=== PATIENT | female | born 1960 | race Caucasian/White ===

== ENCOUNTER → 2019-06-18 09:34 | Outpatient (BNVA) | payer MEDICARE, MEDICAID, SELFPAY | PROVIDERS: Visit Provider Podiatrist Foot & Ankle Surgery | DX: M79.671 Pain in right foot (principal); Z46.89 Encounter for fitting and adjustment of other specified devices; M76.821 Posterior tibial tendinitis, right leg | CPT/HCPCS: 73630; L1902 ==

== ENCOUNTER 2019-06-18 11:36 | Outpatient (CLI) | payer MEDICARE, MEDICAID, SELFPAY | END 2019-06-18 11:37 | disposition home or self-care (01) | LOC: SPT 11:36 | PROVIDERS: Family Provider Family Medicine; Visit Provider Podiatrist Foot & Ankle Surgery | DX: Z46.89 Encounter for fitting and adjustment of other specified devices (principal); M76.821 Posterior tibial tendinitis, right leg | CPT/HCPCS: L1902 ==

== ENCOUNTER 2019-08-16 08:11 | Outpatient (CLI) | payer MEDICARE, MEDICAID, SELFPAY ==
--- NOTE | 2019-08-16 09:30 | CT_ITS ---
WS: [id number] CT THORACIC SPINE TECHNIQUE: Noncontrast CT of the thoracic spine with coronal and sagittal reformatted images. CLINICAL INFORMATION: Thoracic back pain COMPARISON: None. DLP: 1087.[address] scans at [facility] use at least one of these dose optimization techniques: automat ed exposure control; mA and/or kV adjustment per patient size (includes targeted exams where dose is matched to clinical indication); or iterative reconstruction. FINDINGS: Mild thoracic curve. Mild thoracic kyphosis. Anterior hypertrophic changes lower thoracic spine. No a cute compressionfractures. Mild spondylitic changes. Mild chronic anterior wedging in the mid thoraci c spine at T7. Endplate degenerative changes inferior endplate T7. No significant central canal stenosis. Mild facet arthropathy lower thoracic spine. Mild anterior hyp ertrophic changes in the lower thoracic spine at T9-T11 eccentric to the right. Normal caliber descending thoracic aorta. Thickening of the left adrenal gland likely due to hyperpla erika unchanged since CT abdomen pelvis August 23, 2018. Right adrenal gland is normal. Mild chronic emphy sematous changes in the partially visualized lungs. Calcified granuloma right lung. CT/CT thoracic spin wo con* [id number] IMPRESSION: 1. Mild thoracic curve convex right. Mild thoracic kyphosis. 2. No acute appearing compression fractures. 3. Mild chronic anterior wedging at T7. 4. Mild anterior hypertrophic changes in the lower thoracic spine at T9-T11. 5. No significant central canal stenosis.
== END 2019-08-16 08:12 | disposition home or self-care (01) ==
LOC: RADWPI 08:16
PROVIDERS: Family Provider Family Medicine; PCP Nurse Practitioner; Visit Provider Licensed Practical Nurse
DX: M54.6 Pain in thoracic spine (principal); M40.294 Other kyphosis, thoracic region
CPT/HCPCS: 72128

== ENCOUNTER 2019-08-28 19:42 | Emergency (ER) | payer MEDICARE, MEDICAID, SELFPAY ==
[2019-08-28] VITALS (7 sets, daily range): BP systolic 142–180; BP diastolic 77–100; PULSE 52–77; RESP 14–24; TEMP 36.4; O2SAT 89–97; BMI 35.6
--- NOTE | 2019-08-28 19:48 | W.ED.NAVMDI ---
HPI - Nausea/Vomiting/Diarrhea General: Chief complaint: Nausea/Vomiting/Diarrhea Stated complaint: N/V Time Seen by Provider: 08/28/19 19:43 Source: patient and EMS Mode of arrival: EMS Limitations: no limitations History of Present Illness: HPI Narrative: 58-year-old female who states she has been having nausea vomiting and diarrhea for last 2 days. States she had diffuse abdominal cramping is also radiated to her chest as well. She states her pain is currently a 3 out of 10. Denies any worsening or improving factors. Patient vomited in route by EMS and was given 8 mg Zofran. She states she still feels nauseous. MD elicited complaint: nausea and vomiting Onset (ago): day(s) Description of vomiting: food contents Associated nausea: Yes Location of pain: Diffuse Pain consistency: constant Severity: moderate Exacerbating factors: none Relieving factors: none Associated symtoms: Reports chest pain and nausea; Denies dysuria or headache(s) Review of Systems Const: Denies: fever(s), chills, body aches or change in appetite Eyes: Denies: blurry vision or eye discomfort ENMT: Denies: throat pain or dental pain Card: Reports: chest pain Resp: Denies: dyspnea GI: Reports: abdominal pain, nausea, vomiting and diarrhea : Denies: dysuria Musc: Denies: neck pain or back pain Skin/Breast: Denies: rash Neuro: Denies: headache(s) Psych: Denies: depression Yasmani/Lymph: Denies: easy bruising All/Imm: Denies: urticaria PFSH ED PFSH: Medical History CAD (coronary artery disease) CKD (chronic kidney disease) COPD (chronic obstructive pulmonary disease) Diabetes type 2, controlled Fatty liver disease, nonalcoholic HTN (hypertension) Hypothyroid Thoracic degenerative disc disease Surgical History History of delivery (~1988) History of cholecystectomy History of foot surgery (~2010) cyst removal History of knee surgery (~2010) Family History Father Cancer Family/Other Cancer Grandmother Cancer Mother Cancer Social History Smoking and tobacco status: current every day smoker Alcohol intake: current Alcohol intake frequency: holidays/special occasions only Household members: none Marital status: Single Current occupational status: disabled History of recent travel: No Physical Exam Const: COMMON NORMALS: no acute distress, patient oriented x3 and healthy appearing HENMT: COMMON NORMALS: normocephalic and atraumatic HEAD & SCALP: normocephalic and atraumatic Eye: COMMON NORMALS: Equal, round and reactive pupils present and EOMs intact bilaterally PUPIL: Yes Equal, round and reactive pupils present Neck/C-Spine: COMMON NORMALS: full ROM and supple Chest: COMMONS NORMALS: normal inspection of the chest and normal palpation of entire chest wall Resp: COMMON NORMALS: normal respiratory effort, No retractions, No use of accessory muscles and clear to auscultation bilaterally AUSCULTATION: clear to auscultation bilaterally Cardio: COMMON NORMALS: regular rate, regular rhythm and No murmurs present (Cardio) RATE: regular rate RHYTHM: regular rhythm GI: COMMON NORMALS: Normal to inspection, nondistended, normoactive bowel sounds present, Soft to palpation, non-tender and no masses PALPATION: Yes Soft to palpation Extremity: COMMON NORMALS: normal to inspection and full ROM Neuro: COMMON NORMALS: patient oriented x3, moves all extremities and no focal motor deficits Psych: COMMON NORMALS: mental status grossly normal, Normal thought process present and cooperative THOUGHT PROCESS: Normal thought process present Skin: COMMON NORMALS: no rashes or lesions noted and no wounds GENERAL SKIN EXAM: no rashes or lesions noted Course Vital Signs: Vital signs: Vital Signs Temperature 97.6 F 08/28/19 19:42 Pulse Rate 71 08/28/19 23:35 Respiratory Rate 18 08/28/19 23:35 Blood Pressure 146/77 08/28/19 22:15 Pulse Oximetry 91 08/28/19 23:35 MDM - Nausea/Vomiting/Diarrhea MDM Narrative: Medical decision making narrative: Patient presents with vomiting along with abdominal pain. Patient CT shows colitis. Her lab work here is normal. She feels much improved after nausea meds and was able to tolerate p.o. I did offer patient admission but she states she feels better and wants to try home treatment. We will place her on Cipro and Flagyl and prescribe her Zofran. She is to follow-up with her primary care doctor in 3 to 5 days return if worsening. Lab Data: Labs: Lab Results 08/28/19 08/28/19 08/28/19 Range/Units 20:01 20:01 20:01 WBC 7.3 (4.0-10.0) 10^3/ uL RBC 4.36 (4.1-5.3) 10^6/u L Hgb 13.2 (11.5-15.3) g/dL Hct 39.9 (37.0-47.0) % MCV 91.5 (81-99) fL MCH 30.3 (28.0-34.0) pg MCHC 33.1 (30.0-36.0) g/dL RDW 15.3 H (12.1-15.1) % Plt Count 271 (130-400) 10^3/c mm MPV 10.1 (7.4-10.4) fL Neut % (Auto) 70.5 % Lymph % (Auto) 21.0 % [place] % (Auto) 6.7 % Eos % (Auto) 0.7 % Baso % (Auto) 0.7 % Neut # (Auto) 5.2 (1.8-7.7) 10^3/u L Lymph # (Auto) 1.5 (0.8-4.8) 10^3/u L [place] # (Auto) 0.5 (0.2-0.9) 10^3/u L Eos # (Auto) 0.1 (0.0-0.8) 10^3/u L Baso # (Auto) 0.1 (0.0-0.1) 10^3/u L Nucleated RBC % (a uto) 0 % Nucleated RBCs # 0.0 /100WBC Sodium 139 (136-145) mmol/L Potassium 3.7 (3.5-5.1) mmol/L Chloride 100 (98-107) mmol/L Carbon Dioxide 25 (22-29) mmol/L Anion Gap 17.7 (5-19) BUN 18 (6-20) mg/dL Creatinine 0.5 (0.5-0.9) mg/dL GFR Calculation 127.6 (90-130) mL/min Glucose 149 H (65-115) mg/dL Calculated Osmolal ity 287 (285-295) mOsm/k g Calcium 8.6 (8.5-10.5) mg/dL Total Bilirubin 0.3 (0.15-1.2) mg/dL AST 13 (0-32) U/L ALT 16 (0-33) U/L Alkaline Phosphata se 67 (35-105) IU/L Troponin T Baselin e 8 (0-10) ng/mL Troponin T 120 Min absentee-[place] (0-10) ng/mL Delta Troponin T (0-10) ABS# Total Protein 6.2 L (6.6-8.7) g/dL Albumin 4.1 (3.5-5.2) g/dL Globulin 2.1 (1.3-4.6) g/dL Lipase 12 L (13-60) U/L 05/20/ Range/Units 21:28 WBC (4.0-10.0) 10^3/ uL RBC (4.1-5.3) 10^6/u L Hgb (11.5-15.3) g/dL Hct (37.0-47.0) % MCV (81-99) fL MCH (28.0-34.0) pg MCHC (30.0-36.0) g/dL RDW (12.1-15.1) % Plt Count (130-400) 10^3/c mm MPV (7.4-10.4) fL Neut % (Auto) % Lymph % (Auto) % [place] % (Auto) % Eos % (Auto) % Baso % (Auto) % Neut # (Auto) (1.8-7.7) 10^3/u L Lymph # (Auto) (0.8-4.8) 10^3/u L [place] # (Auto) (0.2-0.9) 10^3/u L Eos # (Auto) (0.0-0.8) 10^3/u L Baso # (Auto) (0.0-0.1) 10^3/u L Nucleated RBC % (a uto) % Nucleated RBCs # /100WBC Sodium (136-145) mmol/L Potassium (3.5-5.1) mmol/L Chloride (98-107) mmol/L Carbon Dioxide (22-29) mmol/L Anion Gap (5-19) BUN (6-20) mg/dL Creatinine (0.5-0.9) mg/dL GFR Calculation (90-130) mL/min Glucose (65-115) mg/dL Calculated Osmolal ity (285-295) mOsm/k g Calcium (8.5-10.5) mg/dL Total Bilirubin (0.15-1.2) mg/dL AST (0-32) U/L ALT (0-33) U/L Alkaline Phosphata se (35-105) IU/L Troponin T Baselin e (0-10) ng/mL Troponin T 120 Min absent[place] 8.99 (0-10) ng/mL Delta Troponin T 0.99 (0-10) ABS# Total Protein (6.6-8.7) g/dL Albumin (3.5-5.2) g/dL Globulin (1.3-4.6) g/dL Lipase (13-60) U/L Imaging Data^: CT Abd/Pel: Radiologist's impression: [address] [place] [id number] Scan Report Signed Patient: Selena Tineo Unit #: [id number] : 1960 Age/Sex: 58 / F ADM Date: 08/28/19 Loc: ER Room/Bed: Attending Dr: Ordering Provider/Ordering MD: Bette Xie MD Date of Service: 08/28/19 Procedure(s): CT abdomen pelvis w con* [id number] Accession Number(s): [id number] Report Number: [id number] PROCEDURE INFORMATION: Exam: CT Abdomen And Pelvis With Contrast Exam date and time: 08/28/2019 7:55 PM Age: 58 years old Clinical indication: Nausea and vomiting; Abdominal pain; Prior surgery; Surgery type: , gb; Additional info: Abd pain TECHNIQUE: Imaging protocol: Computed tomography of the abdomen and pelvis with intravenous contrast. Radiation optimization: All CT scans at this facility use at least one of these dose optimization techniques: automated exposure control; mA and/or kV adjustment per patient size (includes targeted exams where dose is matched to clinical indication); or iterative reconstruction. Contrast material: OMNI 300; Contrast volume: 95 ml; Contrast route: IV; COMPARISON: CT abdomen pelvis w con* [id number] 08/23/2018 12:33 PM FINDINGS: The lung bases are clear. There are degenerative changes of the spine. There is no liver mass. There is no intrahepatic biliary dilatation. The patient is status post cholecystectomy. The pancreas is unremarkable. The spleen is unremarkable. There is no adrenal mass. There is nodularity of the left adrenal gland unchanged from August of 2018. This likely represents an adenoma. The right adrenal gland is normal. There is no hydronephrosis. There are no renal calculi. There is no perinephric stranding. There is no renal mass. The aorta is normal in caliber. The IVC is normal in caliber. There is no retroperitoneal adenopathy. There is no mesenteric adenopathy. There is a small hiatal hernia. There is no gastric wall thickening. Parascribe small bowel there is some thickening involving the wall of the ascending and proximal transverse colon which may represent a mild colitis. The distal transverse colon and descending colon appear normal. No bowel obstruction is seen. Within the pelvis: A normal appendix is seen within the right lower quadrant. The bladder is unremarkable. The uterus is unremarkable. There are no adnexal masses. There is no free fluid within the pelvis. There is no inguinal adenopathy. There is no pelvic adenopathy. The rectosigmoid colon is unremarkable. CT/CT abdomen pelvis w con* [id number] IMPRESSION: 1. Mild thickening of the wall of the ascending and proximal transverse colons which may represent a mild colitis. No evidence for bowel obstruction. 2. Incidental findings as described. CXR: Attestation: I personally reviewed and interpreted this imaging study as follows: My impression: no acute abnormality EKG Data^: EKG 1: Attestation: I personally reviewed and interpreted this EKG as follows: EKG interpretation date: 08/28/19 EKG interpretation time: 19:59 Interpretation: sinus kary hr [address] or t wave abnormalities qrs 80 qtc 407 Discharge Plan Discharge Patient Disposition: Home, Self-Care Clinical Impression: Colitis Vomiting Qualifiers: Vomiting type: unspecified Vomiting Intractability: non-intractable Nausea presence: with nausea Qualified Code(s): R11.2 - Nausea with vomiting, unspecified Condition: Stable Prescriptions: New Zofran 4 mg tablet 4 mg PO QID PRN (Reason: nausea and vomiting) Qty: 14 RF: 0 Cipro 500 mg tablet 500 mg PO BID Qty: 14 RF: 0 Flagyl 500 mg tablet 500 mg PO Q8H 7 Days Qty: 21 RF: 0 No Action Jardiance 25 mg tablet 25 mg PO DAILY RF: 0 diclofenac sodium 1 % gel 2 gm TOPICAL QID PRN (Reason: UNKNOWN) RF: 0 (DME) Supinator Qty: 1 RF: 0 lisinopril-hydrochlorothiazide 20-12.5 mg tablet 1 tab PO DAILY RF: 0 dexamethasone 1 mg tablet 1 mg PO DAILY RF: 0 metformin 1,000 mg tablet 1,000 mg PO BID RF: 0 cetirizine 10 mg capsule 10 mg PO DAILY RF: 0 fluticasone propion-salmeterol [Advair Diskus] 250-50 mcg/dose blister with device 1 inh INHALATION BID RF: 0 ergocalciferol (vitamin D2) [Vitamin D2] 1,250 mcg (50,000 unit) capsule 1,250 mcg PO .WEEKLY RF: 0 montelukast 10 mg tablet 10 mg PO DAILY RF: 0 metoprolol succinate 25 mg tablet extended release 24 hr 25 mg PO DAILY RF: 0 Dexilant 30 mg capsule,biphase delayed releas 30 mg PO DAILY RF: 0 hydroxyzine HCl 25 mg tablet 25 mg PO QID PRN (Reason: UNKNOWN) RF: 0 pravastatin 80 mg tablet 80 mg PO DAILY RF: 0 Toujeo SoloStar U-300 Insulin 300 unit/mL (1.5 mL) insulin pen 70 unit SUBCUT DAILY RF: 0 lidocaine 5 % cream 1 applic TOPICAL TID PRN (Reason: UNKNOWN) RF: 0 methocarbamol 750 mg tablet 750 mg PO Q6H PRN (Reason: UNKNOWN) RF: 0 albuterol sulfate 2.5 mg /3 mL (0.083 %) solution for nebulization 2.5 mg INHALATION Q12H PRN (Reason: Shortness Of Breath) RF: 0 albuterol sulfate [ProAir HFA] 90 mcg/actuation HFA aerosol inhaler 2 puff INHALATION Q6H PRN (Reason: Shortness Of Breath) RF: 0 levothyroxine 300 mcg tablet 350 mcg PO DAILY RF: 0 naproxen 500 mg tablet 500 mg PO BID PRN (Reason: Pain) RF: 0 Discharge Orders: Discharge Order (Routine); Ordered 08/28/19 Ordered By: Bette Xie Referrals: Kamla Hanna DPM [Primary Care Provider] - 1-3 days Franco Pablo DO [Family Provider] - Discharge Diet: Advance as tolerated Discharge Activity: Resume usual activity Patient Instructions: Infectious Colitis (ED) Discharge Date/Time: 08/28/19 23:42 Coding Level of Care Code ED Fork Repairer for Chg Fwd Exam Comprehensive
[2019-08-28 20:05] LABS: Basophils # 0.1 10^3/uL (0.0-0.1); Basophils % 0.7 %; Eosinophils # 0.1 10^3/uL (0.0-0.8); Eosinophils % 0.7 %; Hematocrit 39.9 % (37.0-47.0); Hemoglobin 13.2 g/dL (11.5-15.3); Lymphocytes # 1.5 10^3/uL (0.8-4.8); Mean Corpuscular HGB Conc 33.1 g/dL (30.0-36.0); Mean Corpuscular Hemoglobin 30.3 pg (28.0-34.0); Mean Corpuscular Volume 91.5 fL (81-99); Mean Platelet Volume 10.1 fL (7.4-10.4); Monocytes # 0.5 10^3/uL (0.2-0.9); Monocytes % 6.7 %; Neutrophils # 5.2 10^3/uL (1.8-7.7); Neutrophils % 70.5 %; Nucleated Red Blood Cells % 0 %; Platelet Count 271 10^3/cmm (130-400); Red Blood Count 4.36 10^6/uL (4.1-5.3); Red Cell Distribution Width 15.3 % (12.1-15.1); White Blood Count 7.3 10^3/uL (4.0-10.0)
[2019-08-28] MEDS: iohexol 300 mg/mL 100 mL Btl IV (20:07)
[2019-08-28] MEDS: diphenhydrAMINE 50 mg/mL SDV 1mL IVP (20:18)
[2019-08-28] MEDS: metoclopramide 5 mg/mL SDV 2 mL IVP (20:19)
[2019-08-28] MEDS: sodium chloride 0.9% 1,000 ML 999 ML IV (20:19)
[2019-08-28 20:22] LABS: Alanine Aminotransferase 16 U/L (0-33); Albumin Level 4.1 g/dL (3.5-5.2); Alkaline Phosphatase 67 IU/L (35-105); Anion Gap 17.7 (5-19); Aspartate Amino Transferase 13 U/L (0-32); Blood Urea Nitrogen 18 mg/dL (6-20); Calcium 8.6 mg/dL (8.5-10.5); Carbon Dioxide 25 mmol/L (22-29); Chloride 100 mmol/L (98-107); Globulin 2.1 g/dL (1.3-4.6); Glomerular Filtration Rate 127.6 mL/min (90-130); Glucose 149 mg/dL (65-115); Lipase 12 U/L (13-60); Osmolality Calculated 287 mOsm/kg (285-295); Potassium 3.7 mmol/L (3.5-5.1); Sodium 139 mmol/L (136-145); Total Bilirubin 0.3 mg/dL (0.15-1.2); Total Protein 6.2 g/dL (6.6-8.7)
--- NOTE | 2019-08-28 20:28 | XR_ITS ---
WS: [id number] CHEST XRAY TECHNIQUE: Portable chest. CLINICAL INFORMATION: cp COMPARISON: August 23, 2018 FINDINGS: Shallow inspiration. Heart: Normal cardiac silhouette. Lungs: Lungs are clear. No consolidation or pleural effusion. Bones: Normal visualized bony structures. XR/XR chest 1V portable [id number] IMPRESSION: Shallow inspiration. No acute chest findings.
[2019-08-28 20:30] LABS: Troponin(5th) Baseline 8 ng/mL (0-10)
[2019-08-28] MEDS: LORazepam 2 mg/mL INJ 1 mL 1 MG IVP (21:15)
--- NOTE | 2019-08-28 21:47 | ECG_ITS ---
Measurements Intervals [place] Rate: 59 P: 48 IN: 164 QRS: 34 QRSD: 80 T: 37 QT: 408 QTc: 406 SINUS BRADYCARDIA WITH MARKED SINUS ARRHYTHMIA LOW QRS VOLTAGE IN PRECORDIAL LEADS [QRS DEFLECTION < 1.0 mV IN CHEST LEADS] Compared to ECG 08/23/2018 13:19:00 Low QRS voltage now present Electronically Signed On 08-30-2019 18:47:10 CDT by Lizette Salvador M.D. [id number]
[2019-08-28 21:54] LABS: Troponin 5 2HR 8.99 ng/mL (0-10); Troponin 5 2HR Delta 0.99 ABS# (0-10)
[2019-08-28] MEDS: ciprofloxacin 400 MG/200 ML PREMIX 200 MG IV (22:31)
[2019-08-28] MEDS: metroNIDAZOLE IV 500 MG/100 ML PREMIX 100 MG IV (22:32)
== END 2019-08-28 23:42 | disposition home or self-care (01) ==
PROVIDERS: Emergency Provider Emergency Medicine; Family Provider Family Medicine; PCP Nurse Practitioner
DX: K52.9 Noninfective gastroenteritis and colitis, unspecified (principal); Z79.84 Long term (current) use of oral hypoglycemic drugs; I25.10 Atherosclerotic heart disease of native coronary artery without angina pectoris; J44.9 Chronic obstructive pulmonary disease, unspecified; E11.9 Type 2 diabetes mellitus without complications; I10 Essential (primary) hypertension; F17.210 Nicotine dependence, cigarettes, uncomplicated
CPT/HCPCS: 12345; 36415; 71045; 74177; 80053; 83690; 84484; 85025; 93005; 96365; 96368; 96375; 99283; 99284; J0744; J1200; J2060; J2765; J7030; Q9967; S0030

== ENCOUNTER 2019-08-29 10:35 | Inpatient (IN) | payer MEDICARE, MEDICAID, SELFPAY ==
[2019-08-29] VITALS (9 sets, daily range): BP systolic 120–155; BP diastolic 54–119; PULSE 50–81; RESP 16–20; TEMP 36.8–37.4; O2SAT 94–98; BMI 35.6
--- NOTE | 2019-08-29 10:52 | W.ED.NAVMDI ---
HPI - Nausea/Vomiting/Diarrhea General: Chief complaint: Nausea/Vomiting/Diarrhea Stated complaint: N/V/D Time Seen by Provider: 08/29/19 10:36 History of Present Illness: HPI Narrative: 58-year-old female comes in emergency room states she was here last night returns again for persistent nausea and vomiting states she is having bilious vomit she denies any hematemesis coffee-ground emesis denies any hematochezia or melanotic stools. She refers discomfort to the right side of her abdomen she has been vomiting bile. She has not had any fever. She has previously had a cholecystectomy. When patient was seen last night the CT was done and showed a a sending and transverse colitis for which she was given Cipro Flagyl and Zofran. MD elicited complaint: nausea and vomiting Pertinent past history: anorexia Onset (ago): day(s) Description of vomiting: bilious Associated nausea: Yes Associated abdominal pain: Yes Location of pain: RUQ and RLQ Pain consistency: intermittent Severity: severe Quality: cramping Exacerbating factors: eating Relieving factors: none Associated symtoms: Reports nausea; Denies chest pain, dysuria, fatigue or malaise Review of Systems Const: Denies: fever(s), chills, body aches, change in appetite, fatigue or malaise ENMT: Denies: throat pain, ear or mastoid pain, nasal discharge or nasal congestion Card: Denies: chest pain, edema, dyspnea on exertion or orthopnea Resp: Denies: dyspnea, productive cough or non-productive cough GI: Reports: nausea : Denies: flank pain, difficulty voiding, dysuria, urinary frequency or urinary urgency Skin/Breast: Denies: rash or pruritus PFSH ED PFSH: Medical History CAD (coronary artery disease) CKD (chronic kidney disease) COPD (chronic obstructive pulmonary disease) Diabetes type 2, controlled Fatty liver disease, nonalcoholic HTN (hypertension) Hypothyroid Thoracic degenerative disc disease Surgical History History of delivery (~1988) History of cholecystectomy History of foot surgery (~2010) cyst removal History of knee surgery (~2010) Family History Father Cancer Family/Other Cancer Grandmother Cancer Mother Cancer Social History Smoking and tobacco status: current every day smoker Alcohol intake: current Alcohol intake frequency: holidays/special occasions only Household members: none Marital status: Single Current occupational status: disabled History of recent travel: No Physical Exam Const: COMMON NORMALS: no acute distress GENERAL APPEARANCE: cooperative and comfortable ORIENTATION/CONSCIOUSNESS: Yes awake, Yes oriented to person, Yes oriented to place and Yes oriented to time HENMT: COMMON NORMALS: normocephalic, atraumatic, hearing grossly normal bilaterally, external ears normal, EAC's normal, TM's normal bilaterally, Normal nasal mucous membranes and turbinates present, moist oral mucous membranes and oropharynx normal HEAD & SCALP: normocephalic and atraumatic NOSE: Normal nasal mucous membranes and turbinates present EXTERNAL EAR: Yes external ears normal EXTERNAL AUDITORY CANAL: EAC's normal TYMPANIC MEMBRANE: TM's normal bilaterally Eye: COMMON NORMALS: Equal, round and reactive pupils present, EOMs intact bilaterally, conjunctivae normal and no scleral icterus CONJUNCTIVA: Yes conjunctivae normal PUPIL: Yes Equal, round and reactive pupils present Neck/C-Spine: COMMON NORMALS: full ROM, no lymphadenopathy, supple and no JVD Lymph: LYMPHATIC: no lymphadenopathy noted and no lymphedema noted Resp: COMMON NORMALS: normal respiratory effort, No retractions, No use of accessory muscles and clear to auscultation bilaterally AUSCULTATION: clear to auscultation bilaterally Cardio: COMMON NORMALS: no JVD, regular rate, regular rhythm and No murmurs present (Cardio) RATE: regular rate RHYTHM: regular rhythm GI: COMMON NORMALS: Soft to palpation and No hepatosplenomegaly present AUSCULTATION: Yes normoactive bowel sounds PALPATION: Yes Soft to palpation, No Tenderness to palpation present (GI), No Guarding due to palpation present (GI) and Yes No hepatosplenomegaly present Extremity: COMMON NORMALS: normal to inspection, capillary refill normal, no clubbing, cyanosis or edema, no calf tenderness and no pedal edema Neuro: SENSORIUM/ORIENTATION: Yes oriented to person, Yes oriented to place and Yes oriented to time Skin: COMMON NORMALS: no rashes or lesions noted GENERAL SKIN EXAM: no rashes or lesions noted Course Vital Signs: Vital signs: Vital Signs Temperature 98.2 F 08/29/19 13:24 Pulse Rate 65 08/29/19 13:24 Respiratory Rate 18 08/29/19 13:24 Blood Pressure 126/61 08/29/19 13:24 Pulse Oximetry 96 08/29/19 13:24 MDM - Nausea/Vomiting/Diarrhea MDM Narrative: Medical decision making narrative: Patient not tolerating p.o. well we will go ahead and place in observation IV fluid supplement gut rest antiemetics as needed continue Cipro and Flagyl IV Lab Data: Attestation: I reviewed the patient's lab results. Labs: Lab Results 08/29/19 08/29/19 08/29/19 Range/Units 09:47 09:47 11:08 WBC 9.9 (4.0-10.0) 10^3/ uL RBC 4.50 (4.1-5.3) 10^6/u L Hgb 13.7 (11.5-15.3) g/dL Hct 40.9 (37.0-47.0) % MCV 90.9 (81-99) fL MCH 30.4 (28.0-34.0) pg MCHC 33.5 (30.0-36.0) g/dL RDW 15.5 H (12.1-15.1) % Plt Count 311 (130-400) 10^3/c mm MPV 11.0 H (7.4-10.4) fL Neut % (Auto) 87.6 % Lymph % (Auto) 8.9 % [place] % (Auto) 2.8 % Eos % (Auto) 0.0 % Baso % (Auto) 0.3 % Neut # (Auto) 8.7 H (1.8-7.7) 10^3/u L Lymph # (Auto) 0.9 (0.8-4.8) 10^3/u L [place] # (Auto) 0.3 (0.2-0.9) 10^3/u L Eos # (Auto) 0.0 (0.0-0.8) 10^3/u L Baso # (Auto) 0.0 (0.0-0.1) 10^3/u L Nucleated RBC % (a uto) 0 % Nucleated RBCs # 0.0 /100WBC Sodium 139 (136-145) mmol/L Potassium 3.8 (3.5-5.1) mmol/L Chloride 98 (98-107) mmol/L Carbon Dioxide 26 (22-29) mmol/L Anion Gap 18.8 (5-19) BUN 19 (6-20) mg/dL Creatinine 0.6 (0.5-0.9) mg/dL GFR Calculation 103.4 (90-130) mL/min Glucose 244 H (65-115) mg/dL Calculated Osmolal ity 293 (285-295) mOsm/k g Lactate 1.6 (0.5-2.2) mmol/L Calcium 9.3 (8.5-10.5) mg/dL Total Bilirubin 0.3 (0.15-1.2) mg/dL AST 15 (0-32) U/L ALT 19 (0-33) U/L Alkaline Phosphata se 73 (35-105) IU/L Total Protein 7.0 (6.6-8.7) g/dL Albumin 4.6 (3.5-5.2) g/dL Globulin 2.4 (1.3-4.6) g/dL Lipase 10 L (13-60) U/L Urine Color (Yellow) Urine Appearance (CLEAR) Urine pH (5-7) Ur Specific Gravit y (1.005-1.030) Urine Protein (Negative) Urine Glucose (UA) (Normal) Urine Ketones (Negative) Urine Blood (Negative) Urine Nitrate (Negative) Urine Bilirubin (NEGATIVE) Urine Urobilinogen (Negative) mg/dL Ur Leukocyte Anya ase (Negative) Urine RBC (0-2) /hpf Urine WBC (0-5) /hpf Ur Squamous Epith Cells (0-5) Urine Bacteria (NONE) Urine Mucus 08/29/19 Range/Units 11:21 WBC (4.0-10.0) 10^3/ uL RBC (4.1-5.3) 10^6/u L Hgb (11.5-15.3) g/dL Hct (37.0-47.0) % MCV (81-99) fL MCH (28.0-34.0) pg MCHC (30.0-36.0) g/dL RDW (12.1-15.1) % Plt Count (130-400) 10^3/c mm MPV (7.4-10.4) fL Neut % (Auto) % Lymph % (Auto) % [place] % (Auto) % Eos % (Auto) % Baso % (Auto) % Neut # (Auto) (1.8-7.7) 10^3/u L Lymph # (Auto) (0.8-4.8) 10^3/u L Chambers # (Auto) (0.2-0.9) 10^3/u L Eos # (Auto) (0.0-0.8) 10^3/u L Baso # (Auto) (0.0-0.1) 10^3/u L Nucleated RBC % (a uto) % Nucleated RBCs # /100WBC Sodium (136-145) mmol/L Potassium (3.5-5.1) mmol/L Chloride (98-107) mmol/L Carbon Dioxide (22-29) mmol/L Anion Gap (5-19) BUN (6-20) mg/dL Creatinine (0.5-0.9) mg/dL GFR Calculation (90-130) mL/min Glucose (65-115) mg/dL Calculated Osmolal ity (285-295) mOsm/k g Lactate (0.5-2.2) mmol/L Calcium (8.5-10.5) mg/dL Total Bilirubin (0.15-1.2) mg/dL AST (0-32) U/L ALT (0-33) U/L Alkaline Phosphata se (35-105) IU/L Total Protein (6.6-8.7) g/dL Albumin (3.5-5.2) g/dL Globulin (1.3-4.6) g/dL Lipase (13-60) U/L Urine Color Yellow (Yellow) Urine Appearance Sl cloudy A (CLEAR) Urine pH 5 (5-7) Ur Specific Gravit y 1.025 (1.005-1.030) Urine Protein 2+ H (Negative) Urine Glucose (UA) 4+ H (Normal) Urine Ketones 3+ H (Negative) Urine Blood 2+ H (Negative) Urine Nitrate Negative (Negative) Urine Bilirubin Neg (NEGATIVE) Urine Urobilinogen Norm (Negative) mg/dL Ur Leukocyte Anya ase Negative (Negative) Urine RBC 0-4 H (0-2) /hpf Urine WBC 5-10 H (0-5) /hpf Ur Squamous Epith Cells 0-4 H (0-5) Urine Bacteria 2+ H (NONE) Urine Mucus 2+ Discharge Plan Discharge Patient Disposition: Placed in Observation Admit Provider: Tha Traore Clinical Impression: Colitis, Vomiting Condition: Stable Referrals: Kamla Hanna DPM [Primary Care Provider] - Discharge Date/Time: 08/29/19 13:09 Coding Level of Care Code ED Retail Department Manager for Chg Fwd Exam Comprehensive
--- NOTE | 2019-08-29 10:55 | ECG_ITS ---
Measurements Intervals [place] Rate: 57 P: 59 NM: 139 QRS: 76 QRSD: 82 T: 68 QT: 409 QTc: 398 SINUS BRADYCARDIA WITH MARKED SINUS ARRHYTHMIA NONSPECIFIC ST & T-WAVE ABNORMALITY Compared to ECG 08/23/2018 13:19:00 T-wave abnormality now present Electronically Signed On 08-30-2019 18:13:45 CDT by Lizette Salvador M.D. [id number]
[2019-08-29 11:08] LABS: Basophils % 0.3 %; Hematocrit 40.9 % (37.0-47.0); Hemoglobin 13.7 g/dL (11.5-15.3); Lymphocytes # 0.9 10^3/uL (0.8-4.8); Lymphocytes % 8.9 %; Mean Corpuscular HGB Conc 33.5 g/dL (30.0-36.0); Mean Corpuscular Hemoglobin 30.4 pg (28.0-34.0); Mean Corpuscular Volume 90.9 fL (81-99); Monocytes # 0.3 10^3/uL (0.2-0.9); Monocytes % 2.8 %; Neutrophils # 8.7 10^3/uL (1.8-7.7); Neutrophils % 87.6 %; Nucleated Red Blood Cells % 0 %; Platelet Count 311 10^3/cmm (130-400); Red Cell Distribution Width 15.5 % (12.1-15.1); White Blood Count 9.9 10^3/uL (4.0-10.0)
[2019-08-29] MEDS: sodium chloride 0.9% 1,000 ML 999 ML IV (11:16)
[2019-08-29 11:23] LABS: Alanine Aminotransferase 19 U/L (0-33); Albumin Level 4.6 g/dL (3.5-5.2); Alkaline Phosphatase 73 IU/L (35-105); Anion Gap 18.8 (5-19); Aspartate Amino Transferase 15 U/L (0-32); Blood Urea Nitrogen 19 mg/dL (6-20); Calcium 9.3 mg/dL (8.5-10.5); Carbon Dioxide 26 mmol/L (22-29); Chloride 98 mmol/L (98-107); Globulin 2.4 g/dL (1.3-4.6); Glomerular Filtration Rate 103.4 mL/min (90-130); Glucose 244 mg/dL (65-115); Lipase 10 U/L (13-60); Osmolality Calculated 293 mOsm/kg (285-295); Potassium 3.8 mmol/L (3.5-5.1); Sodium 139 mmol/L (136-145); Total Bilirubin 0.3 mg/dL (0.15-1.2)
[2019-08-29 11:38] LABS: Glucose Urine UA 4+ (Normal); Ketones Urine 3+ (Negative); Protein Urine 2+ (Negative); Specific Gravity, Urine 1.025 (1.005-1.030); Urine Color Yellow (Yellow); pH Urine 5 (5-7)
[2019-08-29 11:38] LABS: Lactate (Lactic Acid level) 1.6 mmol/L (0.5-2.2)
[2019-08-29 11:39] LABS: Add Urine Microscopic? YES; Bilirubin Urine Neg (NEGATIVE); Blood Urine 2+ (Negative); Leukocyte Esterase Urine Negative (Negative); Nitrate Urine Negative (Negative); Urobilinogen Urine Norm (Negative)
[2019-08-29 11:44] LABS: RBC Urine 0-4 /hpf (0-2); Squamous Epithelial Cell Urine 0-4 (0-5)
[2019-08-29] MEDS: ondansetron 2 mg/ML SDV 2 mL 4 MG IVP (11:44)
[2019-08-29 11:45] LABS: Add Urine Culture? Yes; Bacteria Urine 2+; Mucus Urine 2+
[2019-08-29] MEDS: morphine 4 mg/mL SDV 1 mL IVP (11:45)
[2019-08-29] MEDS: sodium chloride 0.9% 1,000 ML 150 ML IV ×2 (13:40→20:47)
[2019-08-29] MEDS: metroNIDAZOLE IV 500 MG/100 ML PREMIX 100 MG IV ×2 (13:44→22:00)
--- NOTE | 2019-08-29 15:25 | P.HP_ITS ---
Providers/Chief Complaint Admitting Physician: Tha Traore Primary Care Provider: AGUEDA Grewal Chief Complaint: N/V/D History of Present Illness Selena Tineo is a 58 year old pleasant lady with history of CAD, following with cardiology in office, COPD, DM 2, HTN, hypothyroidism, GILMAR, not on CPAP, schizoaffective disorder, akathisia, smoking addiction, past history of possible bowel obstruction and possibly colitis several years ago for which was treated in [facility], subsequently with colonoscopy done by Dr Dejesus without any noted malignancy. She reports that for the last 3 days or so she has been having diarrhea, as well as multiple episodes of vomiting, and has not been able to eat or drink. She was assessed in ER yesterday, and was found to have on CAT scan plate in the evening colitis of ascending and transverse colon due to which was started on Cipro and Flagyl. She returned to ER today, due to again recurrence of vomiting and inability to tolerate food or drink. She denies any blood in the stool or vomitus. Denies any coffee-ground contents. Denies dark black stools. She says she occasionally takes Tylenol, denies taking NSAIDs anymore. She denies severe abdominal pain. She has had no fever. She has been somewhat more short of breath recently and having to use her inhaler more, having some intermittent productive cough. Denies chest pain or pressure. Has had no headache, no extreme fatigue. Does go to [facility] here, although otherwise is not aware of being exposed to anyone ill. Denies chills, sore throat, or other symptoms. She does continue to smoke 1 pack/day. She also used to have a CPAP machine, but this was taken away reportedly due to lack of adherence, and possibly living conditions, as she reports she is living in a motel. Review of Systems 2 Const: Reports: change in appetite; Denies: fever(s), chills, body aches or malaise Eyes: Denies: change in vision or eye redness ENMT: Denies: throat pain, oral sores or ear or mastoid pain Card: Denies: chest pain, edema, pre-syncope or dyspnea on exertion Resp: Denies: dyspnea, productive cough, change in phlegm color or hemoptysis GI: Reports: nausea, vomiting and diarrhea; Denies: abdominal pain, constipation, hematochezia or melena : Denies: flank pain, urinary frequency or hematuria Musc: Denies: back pain, joint swelling or joint redness Skin/Breast: Denies: rash, sores or new lesions Neuro: Denies: headache(s), numbness in extremities, weakness in extremities, dizziness, confusion or seizure-like activity Psych: Reports: depression; Denies: paranoia, visual hallucinations, auditory hallucinations or suicidal ideation Endo: Denies: polyuria or polydipsia Yasmani/Lymph: Denies: easy bleeding or purpura All/Imm: Denies: urticaria, throat swelling or tongue swelling Medications/Allergies Home Medications Medication Instructions Recorded Confirmed Last Taken Type Supinator #1 ea 06/18/19 08/29/19 Unknown Rx albuterol sulfate 90 mcg/actuation 2 puff INHALATION Q6H PRN 06/19/19 08/29/19 08/28/19 History aerosol inhaler cetirizine 10 mg capsule 10 mg PO DAILY 06/19/19 08/29/19 08/28/19 History dexlansoprazole 30 mg 30 mg PO DAILY 06/19/19 08/29/19 08/28/19 History capsule,biphase delayed release ergocalciferol (vitamin D2) 1,250 1,250 mcg PO Q7D cap 06/19/19 08/29/19 08/28/19 History mcg (50,000 unit) capsule fluticasone 250 mcg-salmeterol 50 1 inh INHALATION BID 06/19/19 08/29/19 08/28/19 History mcg/dose blistr powdr for inhalation insulin glargine U-300 conc 300 70 unit SUBCUT DAILY 06/19/19 08/29/19 08/28/19 History unit/mL (1.5 mL) subcutaneous pen lidocaine 5 % topical cream 1 applic TOPICAL TID PRN 06/19/19 08/29/19 Unknown History lisinopril 20 1 tab PO DAILY 06/19/19 08/29/19 08/28/19 History mg-hydrochlorothiazide 12.5 mg tablet metformin 1,000 mg tablet 1,000 mg PO BID 06/19/19 08/29/19 08/28/19 History metoprolol succinate 25 mg 25 mg PO DAILY 06/19/19 08/29/19 08/28/19 History tablet,extended release 24 hr montelukast 10 mg tablet 10 mg PO DAILY 06/19/19 08/29/19 08/28/19 History pravastatin 80 mg tablet 80 mg PO DAILY 06/19/19 08/29/19 08/28/19 History diclofenac sodium 1 % topical gel 2 gm TOPICAL QID PRN 07/11/19 08/29/19 08/28/19 History empagliflozin 25 mg tablet 25 mg PO DAILY 07/11/19 08/29/19 08/28/19 History levothyroxine 300 mcg tablet 350 mcg PO DAILY tab 07/11/19 08/29/19 08/28/19 History naproxen 500 mg tablet 500 mg PO BID PRN 07/11/19 08/29/19 Unknown History ondansetron HCl [Zofran] 4 mg PO QID PRN #14 tab 08/28/19 08/29/19 Unknown Rx nitroglycerin [Nitrostat] 0.4 mg SUBLINGUAL Q5M PRN 08/29/19 08/29/19 Unknown History trazodone 300 mg PO BEDTIME 08/29/19 08/29/19 08/28/19 History Allergies Allergy/AdvReac Type Severity Reaction Status Date / Time aspirin Allergy rash Verified 08/20/19 14:34 codeine Allergy rash Verified 08/20/19 14:34 Penicillins Allergy rash Verified 08/20/19 14:34 Sulfa (Sulfonamide Allergy rash Verified 08/20/19 14:34 Antibiotics) PFSH Acute PFSH: Medical History (Updated 08/29/19 @ 16:13 by Tha Traore MD) Akathisia CAD (coronary artery disease) CKD (chronic kidney disease) COPD (chronic obstructive pulmonary disease) Diabetes type 2, controlled Fatty liver disease, nonalcoholic HTN (hypertension) Hypothyroid GILMAR (obstructive sleep apnea) Schizoaffective disorder Smoking addiction Thoracic degenerative disc disease Surgical History History of delivery (~1988) History of cholecystectomy History of foot surgery (~2010) cyst removal History of knee surgery (~2010) Family History Father Cancer Family/Other Cancer Grandmother Cancer Social History Smoking and tobacco status: current every day smoker Alcohol intake: current Alcohol intake frequency: holidays/special occasions only Household members: none Marital status: Single Current occupational status: disabled History of recent travel: No Vitals/I&O/Wt Last Vital Signs Temp 98.2 F 08/29/19 13:24 Pulse 65 08/29/19 13:24 Resp 18 08/29/19 13:24 BP 126/61 08/29/19 13:24 Pulse Ox 96 08/29/19 13:24 Weight last 48 hrs Weight 97.069 kg Physical Exam Const: COMMON NORMALS: no acute distress and patient oriented x3 OTHER: Awake, alert, pleasant, conversant. Face mask is on. Severe akathisia, with constant movement of bilateral lower extremities, which she states is not any different from usual. HENMT: COMMON NORMALS: oropharynx normal Neck/C-Spine: COMMON NORMALS: no JVD Resp: COMMON NORMALS: normal respiratory effort AUSCULTATION: wheezes (Mild) Cardio: COMMON NORMALS: no JVD, regular rhythm, S1 normal heart sound present, S2 normal heart sound present and No murmurs present (Cardio) RHYTHM: regular rhythm HEART SOUNDS: S1 normal heart sound present and S2 normal heart sound present GI: COMMON NORMALS: Normal to inspection, nondistended, normoactive bowel sounds present and Soft to palpation PALPATION: Yes Soft to palpation and Yes Tenderness to palpation present (GI) (mild upper and lower) Extremity: COMMON NORMALS: no joint enlargement and no pedal edema Neuro: COMMON NORMALS: patient oriented x3 and moves all extremities Skin: COMMON NORMALS: no rashes or lesions noted GENERAL SKIN EXAM: no rashes or lesions noted OTHER: Extensive tattoos Data : 08/29/19 09:47 08/29/19 09:47 A&P Assessment and plan (1) Colitis: Several days of diarrhea, nausea, vomiting. Abdominal discomfort. Denies hematochezia, melena. Denies hematemesis or coffee-ground contents. He has been having bilious vomiting. Noted mild degree of colitis in ascending and transverse colon on CT late last night when she was evaluated in ER. Was discharged home after IV hydration, with Cipro and Flagyl, however, returned due to inability to tolerate to drink, with persistent nausea, episodes of vomiting. There were no signs of obstruction on CT. She does have diarrhea as mentioned. Does report otherwise episodes of intermittent constipation. For now we will place in observation, with bowel rest, IV hydration, IV ant ibiotics with Cipro and Flagyl. Will collect stool studies for C. difficile, bacterial and parasitic pathogens, WBC, Hemoccult. She has had a colonoscopy several years ago, without finding of malignancy. She is a heavy smoker of 1 pack/day. Would follow-up with primary care provider regarding decision of repeat colonoscopy after resolution of this episode given smoking history. We will also request ESR, CRP, although she denies history of IBD running in the family. She does admit she does not know much about her mother's medical history. She has been afebrile, denies exposure to ill persons, however, also has been shopping at local [employer], does not wear a mask in public. In rare instances COVID-19 may present as diverticulitis or colitis, sometimes with abdominal pain, although suspicion for COVID-19 is low in this case, given some contribution of recently more dyspnea (although again it is probably more from her chronic COPD), we will go ahead and test for COVID-19 and maintain in isolation. Status: Acute (2) Vomiting: As above. For now she would like to avoid NGT placement if possible. Continue PPI. Zofran as needed. She denies taking NSAIDs any longer. Occasionally takes Tylenol. Status: Acute (3) Person under investigation for COVID-19: As above Status: Acute (4) Smoking addiction: Discussed walking cessation for 4 minutes. She is tried quitting in the past, although it is very difficult for her. This is not unexpected with history of schizoaffective disease. We will continue to encourage cessation. Provide nicotine replacement while in hospital. Status: Acute (5) COPD (chronic obstructive pulmonary disease): There is perhaps some exacerbation going on given she has been more dyspneic recently, does report intermittent cough with nonpurulent sputum. Will add breathing treatments. For now hold off on steroid as her symptoms do not appear to be severe, and she is doing well on room air. She is not normally on oxygen. Status: Acute Additional A&P Information GILMAR not on CPAP Attestations Medical Necessity Statement*: Place in observation. Coding Level of Care Code Acute Multiple Drum Sander Helper for Chg Fwd Diagnoses Colitis K52.9 Vomiting R11.10 Person under investigation for COVID-19 Z20.828 Smoking addiction F17.200 COPD (chronic obstructive pulmonary disease) J44.9
[2019-08-29 16:07] LABS: C Reactive Protein 1.2 mg/L (0.0-4.9)
[2019-08-29 16:40] LABS: Erythrocyte Sedimentation Rate 16 mm/hr (0-15)
[2019-08-29] MEDS: pantoprazole DR 40 mg Tablet PO (16:43)
[2019-08-29] MEDS: ciprofloxacin 400 MG/200 ML PREMIX 200 MG IV (16:43)
[2019-08-29 17:02] LABS: Glucose Point of Care 206 mg/dL (70-110)
[2019-08-29] MEDS: albuterol 8 gm MDI 2 PUFF INHALATION (20:05)
[2019-08-29 20:23] LABS: Glucose Point of Care 184 mg/dL (70-110)
[2019-08-29] MEDS: trazodone 150 mg Tablet 300 MG PO (20:46)
[2019-08-30] VITALS (10 sets, daily range): BP systolic 113–171; BP diastolic 63–84; PULSE 58–87; RESP 16–22; TEMP 36.4–36.9; O2SAT 94–98
[2019-08-30] MEDS: ciprofloxacin 400 MG/200 ML PREMIX 200 MG IV ×2 (03:18→17:44)
[2019-08-30] MEDS: sodium chloride 0.9% 1,000 ML 150 ML IV ×3 (03:19→15:47)
[2019-08-30 05:55] LABS: Basophils % 0.6 %; Eosinophils # 0.1 10^3/uL (0.0-0.8); Eosinophils % 0.7 %; Hematocrit 39.3 % (37.0-47.0); Hemoglobin 12.6 g/dL (11.5-15.3); Lymphocytes # 1.8 10^3/uL (0.8-4.8); Lymphocytes % 25.6 %; Mean Corpuscular HGB Conc 32.1 g/dL (30.0-36.0); Mean Corpuscular Hemoglobin 30.6 pg (28.0-34.0); Mean Corpuscular Volume 95.4 fL (81-99); Mean Platelet Volume 10.4 fL (7.4-10.4); Monocytes # 0.7 10^3/uL (0.2-0.9); Monocytes % 9.2 %; Neutrophils # 4.6 10^3/uL (1.8-7.7); Neutrophils % 63.6 %; Nucleated Red Blood Cells % 0 %; Platelet Count 248 10^3/cmm (130-400); Red Blood Count 4.12 10^6/uL (4.1-5.3); Red Cell Distribution Width 15.9 % (12.1-15.1); White Blood Count 7.2 10^3/uL (4.0-10.0)
[2019-08-30] MEDS: metroNIDAZOLE IV 500 MG/100 ML PREMIX 100 MG IV ×3 (05:58→21:34)
[2019-08-30 06:16] LABS: Alanine Aminotransferase 19 U/L (0-33); Albumin Level 3.4 g/dL (3.5-5.2); Alkaline Phosphatase 57 IU/L (35-105); Anion Gap 13.6 (5-19); Aspartate Amino Transferase 16 U/L (0-32); Blood Urea Nitrogen 16 mg/dL (6-20); Calcium 8.8 mg/dL (8.5-10.5); Carbon Dioxide 26 mmol/L (22-29); Chloride 107 mmol/L (98-107); Globulin 2.4 g/dL (1.3-4.6); Glomerular Filtration Rate 103.4 mL/min (90-130); Glucose 78 mg/dL (65-115); Magnesium 1.9 mg/dL (1.7-2.3); Osmolality Calculated 291 mOsm/kg (285-295); Potassium 3.6 mmol/L (3.5-5.1); Sodium 143 mmol/L (136-145); Total Bilirubin 0.2 mg/dL (0.15-1.2); Total Protein 5.8 g/dL (6.6-8.7)
[2019-08-30 06:41] LABS: Glucose Point of Care 117 mg/dL (70-110)
[2019-08-30] MEDS: morphine 4 mg/mL SDV 1 mL 2 MG IVP ×2 (08:14→15:46)
[2019-08-30] MEDS: ondansetron 2 mg/ML SDV 2 mL 4 MG IVP ×3 (08:14→23:48)
[2019-08-30] MEDS: metoprolol succinate ER (24 HR) 25 mg Tablet PO (08:35)
[2019-08-30] MEDS: atorvastatin 40 mg Tablet 20 MG PO (08:35)
[2019-08-30] MEDS: pantoprazole DR 40 mg Tablet PO (08:35)
[2019-08-30] MEDS: montelukast sodium 10 mg Tablet PO (08:36)
[2019-08-30] MEDS: levothyroxine 150 mcg Tablet 300 MCG PO (08:36)
[2019-08-30] MEDS: levothyroxine 50 mcg Tablet PO (08:36)
[2019-08-30] MEDS: nicotine 21 mg Patch 1 PATCH TRANSDERMA (08:36)
--- NOTE | 2019-08-30 10:08 | PC.CHAP ---
Pastoral Care Encounter/Spiritual Assessment Type of Contact [] Declined seafood and service meat manager visit [] Patient/Family/Request visit [] Outpatient visit [] Follow-up visit [] Physician referral [] Code/Alert [x] Routine visit [] Staff referral [] Actively dying [] Patient sleeping [] Family support [] [] Out of room [] Palliative care [] [] Receiving care in room [] Pre-surgical visit [] Trauma [] Long length of stay [] ICU visit [x] Other: room noted as guarded Relational/Emotional Strength [] Patient feels connected with others/family/visitors/staff [] Distress [] Loneliness/isolation [] Abandonment Spirituality of Patient [] Person of Mary [] Attends Mosque of their Mary [] Believes in Prayer [] Reads Bible or Samaritan materials [] There are Spiritual issues to be addressed Training Analyst Interventions [] Prayer [] Active listening [] Non-anxious presence [] Spiritual/emotional support [] Crisis/trauma care [] Spiritual counseling [] Bereavement support [] Provided bereavement packet [] Provided Bible/devotional materials [] Provided toy/stuffed animal, coloring book to patient or family member [] Provided Communion [] Anointing/[place] [] Salvation [x] Completed spiritual assessment [] Other: Impact on Illness or Injury [] Angry [] Fearful [] Anxious [] Often cries [] Exhaustion [] Unable to work [] Unable to attend spiritism [] Unable to walk/stand [] Unable to read [] Unable to drive [] Unable to eat/drink [] Unable to sleep [] Unable to be with family [] Patient intubated [] Other: Summary Time spent with patient
[2019-08-30] MEDS: albuterol 8 gm MDI 2 PUFF INHALATION ×2 (10:31→20:31)
--- NOTE | 2019-08-30 10:32 | CTR_ITS ---
PROCEDURE INFORMATION: Exam: CT Abdomen And Pelvis With Contrast Exam date and time: 08/30/2019 4:51 PM Age: 58 years old Clinical indication: Abdominal pain; Prior surgery; Surgery date: 6+ months; Surgery type: C-sect, gb; Patient HX: C/O epigastric pain w n/v/d; Additional info: Severe abdominal pain TECHNIQUE: Imaging protocol: Computed tomography of the abdomen and pelvis with intravenous contrast. Radiation optimization: All CT scans at this facility use at least one of these dose optimization techniques: automated exposure control; mA and/or kV adjustment per patient size (includes targeted exams where dose is matched to clinical indication); or iterative reconstruction. Contrast material: OMNI 300; Contrast volume: 95 ml; Contrast route: 22G; COMPARISON: CT abdomen pelvis w con* [id number] 08/28/2019 8:01 PM RADIATION DOSE METRICS: Total DLP: 1538.17 mGy-cm FINDINGS: Liver: Normal. No mass. Gallbladder and bile ducts: Cholecystectomy. The bile ducts are normal. Pancreas: Normal. No ductal dilation. Spleen: Normal. No splenomegaly. Adrenals: Stable mild nodularity of the left adrenal gland. The right adrenal is normal. Kidneys and ureters: Normal. No hydronephrosis. Stomach and bowel: Unremarkable. No obstruction. No mucosal thickening. Appendix: The appendix is visualized and is normal. Intraperitoneal space: Trace physiologic fluid in the pelvis. Vasculature: Unremarkable. No abdominal aortic aneurysm. Lymph nodes: Unremarkable. No enlarged lymph nodes. Bladder: Unremarkable as visualized. Reproductive: Unremarkable as visualized. Bones/joints: Unremarkable. No acute fracture. Soft tissues: Unremarkable. CT/CT abdomen pelvis w con* [id number] IMPRESSION: 1. No acute abnormality identified in the abdomen or pelvis. 2. Stable nodularity in the left adrenal gland, most likely small adenomas. Radiation Dose CTDIVOL = (mGy): DLP = 1538.17 (mGy-cm)
[2019-08-30 10:53] LABS: Glucose Point of Care 118 mg/dL (70-110)
[2019-08-30] MEDS: metoclopramide 5 mg/mL SDV 2 mL IVP (11:32)
--- NOTE | 2019-08-30 12:20 | PM.PN ---
Subjective Subjective: Interval history: Significant nausea, dry heaving this morning. Epigastric discomfort. Vitals/I&O/Wt Last Vital Signs Temp 98.4 F 08/30/19 11:35 Pulse 76 08/30/19 11:35 Resp 18 08/30/19 11:35 BP 142/68 08/30/19 11:35 Pulse Ox 94 08/30/19 11:35 08/29/19 08/30/19 08/30/19 22:59 06:59 14:59 Intake Total 1200 / 1300 1080 / 2380 360 / 360 Output Total 400 / 400 900 / 1300 100 / 100 Balance 800 / 900 180 / 1080 260 / 260 Weight last 48 hrs Weight 99.881 kg Weight 97.069 kg Physical Exam Const: COMMON NORMALS: patient oriented x3 OTHER: Sitting up at the bedside, hunched over over a basin, intermittently dry heaving. Uncomfortable. Severe akathisia, with constant movement of bilateral lower extremities. HENMT: COMMON NORMALS: oropharynx normal Neck/C-Spine: COMMON NORMALS: no JVD Resp: COMMON NORMALS: normal respiratory effort AUSCULTATION: wheezes (Mild) Cardio: COMMON NORMALS: no JVD, regular rhythm, S1 normal heart sound present, S2 normal heart sound present and No murmurs present (Cardio) RHYTHM: regular rhythm HEART SOUNDS: S1 normal heart sound present and S2 normal heart sound present GI: COMMON NORMALS: Normal to inspection, nondistended, normoactive bowel sounds present and Soft to palpation PALPATION: Yes Soft to palpation and Yes Tenderness to palpation present (GI) (There is some upper abdomen tenderness, although no rigidity) Extremity: COMMON NORMALS: no joint enlargement and no pedal edema Neuro: COMMON NORMALS: patient oriented x3 and moves all extremities Skin: COMMON NORMALS: no rashes or lesions noted GENERAL SKIN EXAM: no rashes or lesions noted OTHER: Extensive tattoos Data : 08/30/19 05:10 08/30/19 05:10 Micro: Microbiology 08/29/19 11:21 Urine Culture - Preliminary Urine,Clean Catch A&P Assessment and plan (1) Colitis: This morning with dry heaving, significant nausea. I am considering whether she also has some additional gastritis on top of the colitis to cause her symptoms. We will increase PPI to twice daily. Due to worsening of symptoms persistent tenderness in upper abdomen, repeating CT scan today. She otherwise does not appear in sepsis. Anion gap is not elevated. Continue antibiotics. Continue symptomatic management of nausea vomiting. For now bowel asked with ice chips only Stool studies not collected, appears diarrhea has resolved. Inflammatory markers are not suggestive of IBD. Pending COVID-19 testing. Status: Acute (2) Vomiting: As above. For now she would like to avoid NGT placement if possible. Continue PPI, increased dosing to twice a day. Zofran as needed. Add Reglan, Benadryl. She denies taking NSAIDs any longer. Occasionally takes Tylenol. Status: Acute (3) Person under investigation for COVID-19: As above Status: Acute (4) Smoking addiction: We will continue to encourage cessation. Provide nicotine replacement while in hospital. Status: Acute (5) COPD (chronic obstructive pulmonary disease): There is perhaps some exacerbation going on given she has been more dyspneic recently, does report intermittent cough with nonpurulent sputum. Cont breathing treatments. For now hold off on steroid as her symptoms do not appear to be severe, and she is doing well on room air. She is not normally on oxygen. Status: Acute Additional A&P Information GILMAR not on CPAP. Was taken away. Appreciate care coordination looking into this. Attestations Medical Necessity Statement*: Requiring admission of over 2 midnights for assessment of management of intractable nausea, dry heaving, inability to take in food or drink, colitis. Coding Level of Care Code Acute Partner Management Consultant for [place] Fwd Exam Comprehensive Diagnoses Colitis K52.9 Vomiting R11.10 Person under investigation for COVID-19 Z20.828 Smoking addiction F17.200 COPD (chronic obstructive pulmonary disease) J44.9
[2019-08-30] MEDS: diphenhydrAMINE 50 mg/mL SDV 1mL 25 MG IVP (15:46)
[2019-08-30 16:26] LABS: Glucose Point of Care 149 mg/dL (70-110)
[2019-08-30 16:37] LABS: Coronavirus Lab Test PTC Negative
[2019-08-30] MEDS: iohexol 300 mg/mL 100 mL Btl IV (17:05)
[2019-08-30] MEDS: trazodone 150 mg Tablet 300 MG PO (20:13)
[2019-08-30] MEDS: pantoprazole 40 mg SDV IVP (20:14)
[2019-08-30 21:04] LABS: Glucose Point of Care 154 mg/dL (70-110)
[2019-08-31] VITALS (8 sets, daily range): BP systolic 143–172; BP diastolic 77–90; PULSE 43–78; RESP 16–20; TEMP 36.6–36.9; O2SAT 95–98
[2019-08-31] MEDS: sodium chloride 0.9% 1,000 ML 150 ML IV ×4 (02:00→22:05)
[2019-08-31] MEDS: ciprofloxacin 400 MG/200 ML PREMIX 200 MG IV ×2 (05:45→17:29)
[2019-08-31] MEDS: ondansetron 2 mg/ML SDV 2 mL 4 MG IVP ×3 (05:45→22:02)
[2019-08-31 06:31] LABS: Basophils % 0.4 %; Eosinophils % 0.3 %; Hematocrit 37.4 % (37.0-47.0); Lymphocytes # 1.6 10^3/uL (0.8-4.8); Lymphocytes % 19.9 %; Mean Corpuscular HGB Conc 32.1 g/dL (30.0-36.0); Mean Corpuscular Hemoglobin 29.9 pg (28.0-34.0); Mean Platelet Volume 10.5 fL (7.4-10.4); Monocytes # 0.7 10^3/uL (0.2-0.9); Monocytes % 8.7 %; Neutrophils # 5.5 10^3/uL (1.8-7.7); Neutrophils % 70.4 %; Nucleated Red Blood Cells % 0 %; Platelet Count 273 10^3/cmm (130-400); Red Blood Count 4.02 10^6/uL (4.1-5.3); Red Cell Distribution Width 15.5 % (12.1-15.1); White Blood Count 7.9 10^3/uL (4.0-10.0)
[2019-08-31 06:38] LABS: Glucose Point of Care 174 mg/dL (70-110)
[2019-08-31 06:52] LABS: Alanine Aminotransferase 26 U/L (0-33); Albumin Level 3.7 g/dL (3.5-5.2); Alkaline Phosphatase 58 IU/L (35-105); Anion Gap 13.9 (5-19); Aspartate Amino Transferase 19 U/L (0-32); Blood Urea Nitrogen 18 mg/dL (6-20); Carbon Dioxide 25 mmol/L (22-29); Chloride 104 mmol/L (98-107); Globulin 2.3 g/dL (1.3-4.6); Glomerular Filtration Rate 86.6 mL/min (90-130); Glucose 137 mg/dL (65-115); Magnesium 1.8 mg/dL (1.7-2.3); Osmolality Calculated 287 mOsm/kg (285-295); Potassium 3.9 mmol/L (3.5-5.1); Sodium 139 mmol/L (136-145); Total Bilirubin 0.3 mg/dL (0.15-1.2)
[2019-08-31] MEDS: pantoprazole 40 mg SDV IVP ×2 (07:48→22:00)
[2019-08-31 09:05] LABS: H. Pylori IgG Antibody Negative (Negative)
[2019-08-31] MEDS: metroNIDAZOLE IV 500 MG/100 ML PREMIX 100 MG IV ×3 (09:13→22:01)
[2019-08-31] MEDS: metoprolol succinate ER (24 HR) 25 mg Tablet PO (09:14)
[2019-08-31] MEDS: montelukast sodium 10 mg Tablet PO (09:14)
[2019-08-31] MEDS: nicotine 21 mg Patch 1 PATCH TRANSDERMA (09:14)
[2019-08-31] MEDS: atorvastatin 40 mg Tablet 20 MG PO (09:14)
[2019-08-31] MEDS: albuterol 8 gm MDI 2 PUFF INHALATION (09:25)
[2019-08-31 09:42] LABS: Glucose Point of Care 148 mg/dL (70-110)
[2019-08-31] MEDS: insulin glargine 100 units/1 mL 30 UNIT SUBCUT (10:00)
[2019-08-31 11:10] LABS: Glucose Point of Care 143 mg/dL (70-110)
[2019-08-31] MEDS: diphenhydrAMINE 50 mg/mL SDV 1mL 25 MG IVP (13:19)
[2019-08-31] MEDS: metoclopramide 5 mg/mL SDV 2 mL IVP (13:20)
--- NOTE | 2019-08-31 14:41 | PC.CHAP ---
Pastoral Care Encounter/Spiritual Assessment Type of Contact [] Declined rn medical surgical visit [] Patient/Family/Request visit [] Outpatient visit [] Follow-up visit [] Physician referral [] Code/Alert [] Routine visit [] Staff referral [] Actively dying [X] Patient sleeping [] Family support [] [] Out of room [] Palliative care [] [] Receiving care in room [] Pre-surgical visit [] Trauma [] Long length of stay [] ICU visit [] Other: Relational/Emotional Strength [] Patient feels connected with others/family/visitors/staff [] Distress [] Loneliness/isolation [] Abandonment Spirituality of Patient [] Person of Mary [] Attends Mandaen of their Mary [] Believes in Prayer [] Reads Bible or Mu-Ism materials [] There are Spiritual issues to be addressed Boxcar Weigher Interventions [] Prayer [] Active listening [] Non-anxious presence [] Spiritual/emotional support [] Crisis/trauma care [] Spiritual counseling [] Bereavement support [] Provided bereavement packet [] Provided Bible/devotional materials [] Provided toy/stuffed animal, coloring book to patient or family member [] Provided Communion [] Anointing/[place] [] Salvation [] Completed spiritual assessment [] Other: Impact on Illness or Injury [] Angry [] Fearful [] Anxious [] Often cries [] Exhaustion [] Unable to work [] Unable to attend sabianist [] Unable to walk/stand [] Unable to read [] Unable to drive [] Unable to eat/drink [] Unable to sleep [] Unable to be with family [] Patient intubated [] Other: Summary PT WAS SLEEPING, FOLLOW UP NEXT SHIFT Time spent with patient
[2019-08-31 17:37] LABS: Glucose Point of Care 112 mg/dL (70-110)
--- NOTE | 2019-08-31 17:50 | P.PCN_ITS ---
Procedure/Consent Procedure Narrative: Indication repeated nausea and vomiting/couple of attempts by nursing staff to insert NG not successful, was called to assist in placement of NG by hospitalist service Procedure: NG placement wide bore bedside without complication After limited history taking physical examination and reviewing the chart and images with my personal interpretation, well-lubricated wide bore NG tube was inserted by me bedside from the first attempt, after placement stethoscope was applied on the patient's belly and a 60 cc syringe of air was pushed through the NG and a gush of air was appreciated in the stomach with the stethoscope, 200 mL of fluid aspirate came out from the NG. NG was flushed bedside by me was hooked to low intermittent wall suction Procedure done without complication and patient tolerated it well. I was present for the whole entire procedure. No blood loss No specimens Anesthesia none Mining Support Worker RN Ginger
--- NOTE | 2019-08-31 17:53 | XRR_ITS ---
PROCEDURE INFORMATION: Exam: XR Chest, 1 View Exam date and time: 08/31/2019 5:55 PM Age: 58 years old Clinical indication: Device placement; Ng tube; Additional info: Ng tube placement TECHNIQUE: Imaging protocol: XR of the chest Views: 1 view. COMPARISON: CR XR chest 1V portable [id number] 08/28/2019 8:32 PM FINDINGS: There is a nasogastric tube noted with tip curled in the proximal stomach. No infiltrates are present. There is no pleural effusion or pneumothorax. The heart size is stable. XR/XR chest 1V portable [id number] IMPRESSION: Nasogastric tube noted with tip curled in the proximal stomach.
[2019-08-31 20:30] LABS: Glucose Point of Care 118 mg/dL (70-110)
--- NOTE | 2019-08-31 20:49 | CTR_ITS ---
PROCEDURE INFORMATION: Exam: CT Head Without Contrast Exam date and time: 08/31/2019 9:06 PM Age: 58 years old Clinical indication: Patient HX: C/O ALVARES, dizziness, n/v w bradycardia; Additional info: Vomiting, bradycardia TECHNIQUE: Imaging protocol: Computed tomography of the head without contrast. Radiation optimization: All CT scans at this facility use at least one of these dose optimization techniques: automated exposure control; mA and/or kV adjustment per patient size (includes targeted exams where dose is matched to clinical indication); or iterative reconstruction. COMPARISON: No relevant prior studies available. FINDINGS: The ventricles, sulci and basilar cisterns appear normal for the patient's stated age. There is no evidence of mass, hemorrhage or infarct. No extra-axial fluid collections are identified. There is no midline shift. There is no evidence of fracture. The visualized paranasal sinuses are well-aerated. CT/CT head wo con* [id number] IMPRESSION: No evidence for acute infarct, mass or hemorrhage. Radiation Dose CTDIVOL = (mGy): DLP = 747.79 (mGy-cm)
--- NOTE | 2019-08-31 20:50 | P.PN_ITS ---
Subjective Subjective: Interval history: Persistent dry heaves, intermittent vomiting, unable to eat or drink. Abdominal wall muscles sore today from dry heaving. Vitals/I&O/Wt Last Vital Signs Temp 98.5 F 08/31/19 19:53 Pulse 60 08/31/19 19:53 Resp 20 H 08/31/19 19:53 BP 167/86 08/31/19 19:53 Pulse Ox 97 08/31/19 19:53 08/31/19 08/31/19 08/31/19 06:59 14:59 22:59 Intake Total 200 / 2897.5 1300 / 1300 1000 / 2300 Balance 200 / 2237.5 1300 / 1300 1000 / 2300 Weight last 48 hrs Weight 99.904 kg Weight 98.628 kg Weight 99.881 kg Physical Exam Const: COMMON NORMALS: patient oriented x3 OTHER: Awake, alert, and moderate discomfort secondary to nausea. Severe akathisia, with constant movement of bilateral lower extremities. HENMT: COMMON NORMALS: oropharynx normal Neck/C-Spine: COMMON NORMALS: no JVD Resp: COMMON NORMALS: normal respiratory effort and clear to auscultation bilaterally AUSCULTATION: clear to auscultation bilaterally and no wheezes Cardio: COMMON NORMALS: no JVD, regular rhythm, S1 normal heart sound present, S2 normal heart sound present and No murmurs present (Cardio) RHYTHM: regular rhythm HEART SOUNDS: S1 normal heart sound present and S2 normal heart sound present GI: COMMON NORMALS: Normal to inspection, nondistended, normoactive bowel sounds present and Soft to palpation PALPATION: Yes Soft to palpation and Yes Tenderness to palpation present (GI) (Abdominal muscle tenderness.) Extremity: COMMON NORMALS: no joint enlargement and no pedal edema Neuro: COMMON NORMALS: patient oriented x3 and moves all extremities Skin: COMMON NORMALS: no rashes or lesions noted GENERAL SKIN EXAM: no rashes or lesions noted OTHER: Extensive tattoos Data : 08/31/19 06:05 08/31/19 06:05 Micro: Microbiology 08/29/19 11:21 Urine Culture - Final Urine,Clean Catch A&P Assessment and plan (1) Vomiting: Again intermittent vomiting, but mostly dry heaving, as has not been eating or drinking. Today to the point of having abdominal muscle soreness. Requested that we go ahead and place NG tube. Appreciate surgery placing this after I could not be inserted with nursing staff. Maintained to LIS. Patient states has had a similar episode in the past, and felt better with decompression, although discussed with her we have not seen s igns of obstruction on CT scan. She does feel bloated, reports significant eructation, but also passing flatus. At the same time incidentally noted to have some bradycardia, 50s-60s, and with persistent nausea will assess CT of the head to exclude intracranial process. H. pylori serology was negative. Continue PPI, increased dosing to twice a day. Zofran as needed. Continue Reglan, Benadryl. She denied taking NSAIDs any longer. Occasionally takes Tylenol. Status: Acute (2) Colitis: This morning with dry heaving, significant nausea. Things appear to have improved on the repeat CT scan yesterday. At this time no signs of sepsis. Continue antibiotics. Continue symptomatic management of nausea vomiting. For now bowel asked with ice chips only Stool studies not collected, appears diarrhea has resolved. Inflammatory markers are not suggestive of IBD. Negative COVID-19 testing. Status: Acute (3) Person under investigation for COVID-19: Negative Status: Acute (4) Smoking addiction: We will continue to encourage cessation. Provide nicotine replacement while in hospital. Status: Acute (5) COPD (chronic obstructive pulmonary disease): There is perhaps some exacerbation going on given she has been more dyspneic recently, does report intermittent cough with nonpurulent sputum. Cont breathing treatments. For now hold off on steroid as her symptoms do not appear to be severe, and she is doing well on room air. She is not normally on oxygen. Status: Acute Additional A&P Information GILMAR not on CPAP. Was taken away. Appreciate care coordination looking into this. Attestations Medical Necessity Statement*: Continue admission for assessment management of persistent nausea, dry heaving, inability to tolerate oral intake. Treatment of colitis. Coding Level of Care Code Acute Coffee Sampler for Sydney Avila Diagnoses Vomiting R11.10 Colitis K52.9 Person under investigation for COVID-19 Z20.828 Smoking addiction F17.200 COPD (chronic obstructive pulmonary disease) J44.9
[2019-08-31] MEDS: phenol oral Spray 177 mL 3 SPRAY MUCOUS MEM (22:00)
[2019-08-31] MEDS: trazodone 150 mg Tablet 300 MG PO (22:01)
[2019-09-01] VITALS (8 sets, daily range): BP systolic 159–184; BP diastolic 66–95; PULSE 47–74; RESP 16–22; TEMP 36.6–36.8; O2SAT 95–98
[2019-09-01] MEDS: phenol oral Spray 177 mL 3 SPRAY MUCOUS MEM ×3 (01:15→10:39)
--- NOTE | 2019-09-01 04:09 | ECG_ITS ---
Measurements Intervals [place] Rate: 53 P: -87 [place]: 80 QRS: 34 QRSD: 77 T: 18 QT: 450 QTc: 426 JUNCTIONAL BRADYCARDIA LOW QRS VOLTAGE IN PRECORDIAL LEADS [QRS DEFLECTION < 1.0 mV IN CHEST LEADS] SEPTAL MYOCARDIAL INFARCTION [40+ ms Q WAVE IN V1/V2], PROBABLY OLD Compared to ECG 08/29/2019 11:11:02 Low QRS voltage now present Myocardial infarct finding now present Sinus bradycardia no longer present Sinus arrhythmia no longer present T-wave abnormality no longer present Electronically Signed On 09-01-2019 11:04:34 CDT by Yared Lynn MD [email or web address]
[2019-09-01 04:37] LABS: Basophils % 0.6 %; Eosinophils % 0.3 %; Hematocrit 38.3 % (37.0-47.0); Hemoglobin 12.5 g/dL (11.5-15.3); Lymphocytes # 1.5 10^3/uL (0.8-4.8); Mean Corpuscular HGB Conc 32.6 g/dL (30.0-36.0); Mean Corpuscular Hemoglobin 30.2 pg (28.0-34.0); Mean Corpuscular Volume 92.5 fL (81-99); Mean Platelet Volume 10.1 fL (7.4-10.4); Monocytes # 0.6 10^3/uL (0.2-0.9); Monocytes % 8.7 %; Neutrophils # 4.9 10^3/uL (1.8-7.7); Neutrophils % 69.1 %; Nucleated Red Blood Cells % 0 %; Platelet Count 253 10^3/cmm (130-400); Red Blood Count 4.14 10^6/uL (4.1-5.3); Red Cell Distribution Width 15.1 % (12.1-15.1); White Blood Count 7.1 10^3/uL (4.0-10.0)
[2019-09-01] MEDS: sodium chloride 0.9% 1,000 ML 150 ML IV (04:38)
[2019-09-01] MEDS: magnesium sulfate premix 2 GM/50 ML PIGGYBACK IV ×2 (04:38→09:17)
[2019-09-01] MEDS: ciprofloxacin 400 MG/200 ML PREMIX 200 MG IV ×2 (04:39→19:17)
[2019-09-01 04:52] LABS: Alanine Aminotransferase 25 U/L (0-33); Albumin Level 3.4 g/dL (3.5-5.2); Alkaline Phosphatase 55 IU/L (35-105); Anion Gap 15.3 (5-19); Aspartate Amino Transferase 17 U/L (0-32); Blood Urea Nitrogen 17 mg/dL (6-20); Calcium 8.8 mg/dL (8.5-10.5); Carbon Dioxide 23 mmol/L (22-29); Chloride 103 mmol/L (98-107); Globulin 2.2 g/dL (1.3-4.6); Glomerular Filtration Rate 86.6 mL/min (90-130); Glucose 92 mg/dL (65-115); Magnesium 1.7 mg/dL (1.7-2.3); Osmolality Calculated 282 mOsm/kg (285-295); Potassium 3.3 mmol/L (3.5-5.1); Sodium 138 mmol/L (136-145); Total Bilirubin 0.3 mg/dL (0.15-1.2); Total Protein 5.6 g/dL (6.6-8.7)
[2019-09-01 04:53] LABS: Troponin T (5th) Once 13 ng/mL (0-10)
--- NOTE | 2019-09-01 06:42 | ECG_ITS ---
Measurements Intervals [place] Rate: 37 P: 51 [place]: 139 QRS: 34 QRSD: 85 T: 29 QT: 487 QTc: 386 SINUS BRADYCARDIA LOW QRS VOLTAGE IN PRECORDIAL LEADS [QRS DEFLECTION < 1.0 mV IN CHEST LEADS] SEPTAL MYOCARDIAL INFARCTION [40+ ms Q WAVE IN V1/V2], PROBABLY OLD Compared to ECG 08/29/2019 11:11:02 Low QRS voltage now present Myocardial infarct finding now present Sinus arrhythmia no longer present T-wave abnormality no longer present Electronically Signed On 09-01-2019 11:04:20 CDT by Yared Lynn MD [email or web address]
[2019-09-01 06:49] LABS: Glucose Point of Care 101 mg/dL (70-110)
[2019-09-01] MEDS: nicotine 21 mg Patch 1 PATCH TRANSDERMA (08:20)
[2019-09-01] MEDS: atorvastatin 40 mg Tablet 20 MG PO (08:20)
[2019-09-01] MEDS: metoprolol succinate ER (24 HR) 25 mg Tablet PO (08:20)
[2019-09-01] MEDS: montelukast sodium 10 mg Tablet PO (08:20)
[2019-09-01] MEDS: metroNIDAZOLE IV 500 MG/100 ML PREMIX 100 MG IV ×2 (08:21→17:05)
[2019-09-01] MEDS: pantoprazole 40 mg SDV IVP (09:15)
[2019-09-01] MEDS: potassium chloride premix 40 MEQ/100 ML PREMIX 25 MEQ IV (10:37)
[2019-09-01] MEDS: lidocaine 1% INJ 20 mL 5 ML IV (10:37)
[2019-09-01] MEDS: insulin glargine 100 units/1 mL 30 UNIT SUBCUT (10:39)
[2019-09-01 11:40] LABS: Glucose Point of Care 82 mg/dL (70-110)
--- NOTE | 2019-09-01 15:13 | PC.RESP ---
Smoking Cessation and Pulmonary Rehab information to patient with a schedule of classes.
[2019-09-01 16:15] LABS: Glucose Point of Care 114 mg/dL (70-110)
[2019-09-01] MEDS: metroNIDAZOLE 500 MG Tablet PO (19:16)
--- NOTE | 2019-09-01 22:07 | PM.DCS ---
Discharge Providers Date of Admission: 08/30/19 12:15 Date of Discharge: September 01, 2019 Attending Provider at Admission: Tha Traore Attending Provider at Discharge: Tha Traore Primary Care Provider: AGUEDA Grewal Diagnoses at Discharge Discharge Diagnosis (1) Vomiting: Status: Acute (2) Colitis: Status: Acute (3) Person under investigation for COVID-19: Status: Acute (4) Smoking addiction: Status: Acute (5) COPD (chronic obstructive pulmonary disease): Status: Acute Reason for Visit Reason for Visit: Reason For Visit: N/V/D Hospital Course Hospital Course: Pleasant 58-year-old lady with CAD, following with cardiology in office, COPD, DM 2, HTN, hypothyroidism, GILMAR, not on CPAP which was taken away due to lack of adherence, schizoaffective disorder, with severe akathisia, smoking addiction, past history of bowel obstruction, possibly colitis several years ago per patient, which she says was followed by colonoscopy assessment by Dr. Dejesus without finding of malignancy, was admitted for assessment management after presenting with nausea, vomiting and diarrhea, with finding of mild ascending and transverse colitis noted on CT abdomen pelvis the night prior to admission when she came to ER with similar symptoms, and after feeling better was released home with a course of ciprofloxacin and Flagyl, however, with return of symptoms came back to the hospital. She had persistent dry heaving, nausea. She denied taking NSAIDs any longer, although they were listed on her home medications. She was started on PPI, kept on bowel rest, with sips and ice chips. Antibiotics transitioned to IV. She initially declined placement of NG tube, however, after persistent symptoms requested for 1 to be placed, and with IV antibiotics, and conservative care, her symptoms gradually improved. Given diverticulitis, recently worsening of dyspnea, was assessed by COVID-19 testing which was negative. She was counseled on smoking cessation. Mild COPD exacerbation treated with breathing treatments resolved. Today she is feeling much better, requested to start on clear liquid diet which she tolerated well, and NG tube successfully removed. She she felt well enough to request discharge from the hospital and will complete course of antibiotics (given paper prescriptions to pick pack worker at [facility] pharmacy tomorrow due to holiday) with Cipro and Flagyl, and follow-up with primary care provider to discuss whether there is benefit of arranging repeat endoscopy depending on how recent the prior study has been. Physical Exam Const: COMMON NORMALS: patient oriented x3 OTHER: Awake, alert, comfortable, in good spirits. Severe akathisia, with constant movement of bilateral lower extremities. HENMT: COMMON NORMALS: oropharynx normal Neck/C-Spine: COMMON NORMALS: no JVD Resp: COMMON NORMALS: normal respiratory effort and clear to auscultation bilaterally AUSCULTATION: clear to auscultation bilaterally and no wheezes Cardio: COMMON NORMALS: no JVD, regular rhythm, S1 normal heart sound present, S2 normal heart sound present and No murmurs present (Cardio) RHYTHM: regular rhythm HEART SOUNDS: S1 normal heart sound present and S2 normal heart sound present GI: COMMON NORMALS: Normal to inspection, nondistended, normoactive bowel sounds present and Soft to palpation PALPATION: Yes Soft to palpation and Yes Tenderness to palpation present (GI) (Abdominal muscle tenderness.) Extremity: COMMON NORMALS: no joint enlargement and no pedal edema Neuro: COMMON NORMALS: patient oriented x3 and moves all extremities Skin: COMMON NORMALS: no rashes or lesions noted GENERAL SKIN EXAM: no rashes or lesions noted OTHER: Extensive tattoos Discharge Data Data Completed and Pending: Completed Studies During Hospitalization Category Date Time Status CT abdomen pelvis w con* [id number] Rout ine Cat Scan 08/30/19 10:[address] head wo con* [id number] Routine Cat Scan 08/31/19 20:49 Completed XR chest 1V zoey ble [id number] Stat Exams 08/31/19 17:53 Completed Labs from last 24 hours 09/01/19 09/01/19 09/01/19 16:08 11:29 06:42 WBC RBC Hgb Hct MCV MCH MCHC RDW Plt Count MPV Neut % (Auto) Lymph % (Auto) [place] % (Auto) Eos % (Auto) Baso % (Auto) Neut # (Auto) Lymph # (Auto) [place] # (Auto) Eos # (Auto) Baso # (Auto) Nucleated RBC % (a uto) Nucleated RBCs # Sodium Potassium Chloride Carbon Dioxide Anion Gap BUN Creatinine GFR Calculation Glucose POC Glucose 114 82 101 Calculated Osmolal ity Calcium Magnesium Total Bilirubin AST ALT Alkaline Phosphata se Troponin T Gen 5 n g/L Total Protein Albumin Globulin 09/01/19 09/01/1908/31/20 04:30 04:30 04:30 WBC 7.1 RBC 4.14 Hgb 12.5 Hct 38.3 MCV 92.5 MCH 30.2 MCHC 32.6 RDW 15.1 Plt Count 253 MPV 10.1 Neut % (Auto) 69.1 Lymph % (Auto) 21.0 [place] % (Auto) 8.7 Eos % (Auto) 0.3 Baso % (Auto) 0.6 Neut # (Auto) 4.9 Lymph # (Auto) 1.5 [place] # (Auto) 0.6 Eos # (Auto) 0.0 Baso # (Auto) 0.0 Nucleated RBC % (a uto) 0 Nucleated RBCs # 0.0 Sodium 138 Potassium 3.3 L Chloride 103 Carbon Dioxide 23 Anion Gap 15.3 BUN 17 Creatinine 0.7 GFR Calculation 86.6 L Glucose 92 POC Glucose Calculated Osmolal ity 282 L Calcium 8.8 Magnesium 1.7 Total Bilirubin 0.3 AST 17 ALT 25 Alkaline Phosphata se 55 Troponin T Gen 5 n g/L 13 H Total Protein 5.6 L Albumin 3.4 L Globulin 2.2 Vitals: Last Vital Signs Temp 98.1 F 09/01/19 18:51 Pulse 53 L 09/01/19 18:51 Resp 18 09/01/19 18:51 BP 159/74 09/01/19 18:51 Pulse Ox 95 09/01/19 18:51 Discharge Plan Discharge Patient Disposition: Home, Self-Care Condition: Stable Prescriptions: New nicotine 21 mg/24 hr Patch 24 Hour 1 patch transdermal DAILY Qty: 30 RF: 0 nicotine (polacrilex) 2 mg mini lozenge 2 mg BUCCAL Q1H PRN (Reason: nicotine cravings) Qty: 81 RF: 0 ciprofloxacin HCl 500 mg tablet 500 mg PO BID Qty: 14 RF: 0 Flagyl 500 mg tablet 500 mg PO Q8H 14 Days Qty: 42 RF: 0 Zofran 4 mg tablet 4 mg PO Q8H PRN (Reason: nausea and vomiting) 5 Days RF: 0 Reglan 5 mg tablet 5 mg PO QID PRN (Reason: nausea and vomiting) Qty: 12 RF: 0 Continued Jardiance 25 mg tablet 25 mg PO DAILY RF: 0 lisinopril-hydrochlorothiazide 20-12.5 mg tablet 1 tab PO DAILY RF: 0 metformin 1,000 mg tablet 1,000 mg PO BID RF: 0 cetirizine 10 mg capsule 10 mg PO DAILY RF: 0 fluticasone propion-salmeterol [Advair Diskus] 250-50 mcg/dose blister with device 1 inh INHALATION BID RF: 0 ergocalciferol (vitamin D2) [Vitamin D2] 1,250 mcg (50,000 unit) capsule 1,250 mcg PO Q7D RF: 0 montelukast 10 mg tablet 10 mg PO DAILY RF: 0 metoprolol succinate 25 mg tablet extended release 24 hr 25 mg PO DAILY RF: 0 pravastatin 80 mg tablet 80 mg PO DAILY RF: 0 Toujeo SoloStar U-300 Insulin 300 unit/mL (1.5 mL) insulin pen 70 unit SUBCUT DAILY RF: 0 lidocaine 5 % cream 1 applic TOPICAL TID PRN (Reason: UNKNOWN) RF: 0 albuterol sulfate [ProAir HFA] 90 mcg/actuation HFA aerosol inhaler 2 puff INHALATION Q6H PRN (Reason: Shortness Of Breath) RF: 0 levothyroxine 300 mcg tablet 350 mcg PO DAILY RF: 0 ondansetron HCl [Zofran] 4 mg tablet 4 mg PO QID PRN (Reason: nausea and vomiting) Qty: 14 RF: 0 trazodone 150 mg Tablet 300 mg PO BEDTIME RF: 0 Nitrostat 0.4 mg Tablet, Sublingual 0.4 mg SUBLINGUAL Q5M PRN (Reason: Chest Pain) RF: 0 Changed Dexilant 30 mg capsule,biphase delayed releas 30 mg PO BID Qty: 60 RF: 0 Discontinued diclofenac sodium 1 % gel 2 gm TOPICAL QID PRN (Reason: UNKNOWN) RF: 0 naproxen 500 mg tablet 500 mg PO BID PRN (Reason: Pain) RF: 0 No Action (DME) Supinator Qty: 1 RF: 0 Discharge Orders: Discharge Order (Routine); Ordered 09/01/19 Ordered By: Tha Traore Referrals: Kamla Hanna DPM [Primary Care Provider] - 4-7 days Discharge Diet: Advance as tolerated, Cardiac and Diabetic Discharge Activity: Increase activity as tolerated Patient Instructions: COPD, Ciprofloxacin (By mouth), Metoclopramide (By mouth), Metronidazole (By mouth), How to Stop Smoking (GEN), Infectious Colitis (GEN), COPD Stoplight Activity Restrictions/Additional Instructions: Please stop smoking as this increases your risk of cancer, risk of progression of worsening of her breathing and advancement of COPD, as well as some risk of various cancers and cardiovascular disease. Please discuss with your primary care doctor with regards to colitis, and whether there may be benefit to additional follow-up by colonoscopy. Possibly referral to gastroenterology given recurrent symptoms. Discharge Date/Time: 09/01/19 19:18 Discharge Attestations Time Spent in Discharge Care*: greater than 30 min Quality Metrics Clinical Quality Measures During this hospital stay, did patient experience: None Coding Level of Care Code Acute Auto Transmission Mechanic for g Fwd Diagnoses Vomiting R11.10 Colitis K52.9 Person under investigation for COVID-19 Z20.828 Smoking addiction F17.200 COPD (chronic obstructive pulmonary disease) J44.9
== END 2019-09-01 19:18 | disposition home or self-care (01) | DRG 392 ==
LOC: ER 12:45 → MEDSURG 13:01
PROVIDERS: Family Medicine; Student in an Organized Health Care Education/Training Program; Admitting Provider Internal Medicine; PCP Nurse Practitioner; Visit Provider Internal Medicine
DX: K52.9 Noninfective gastroenteritis and colitis, unspecified (principal); I25.10 Atherosclerotic heart disease of native coronary artery without angina pectoris; J44.9 Chronic obstructive pulmonary disease, unspecified; I12.9 Hypertensive chronic kidney disease with stage 1 through stage 4 chronic kidney disease, or unspecified chronic kidney disease; E11.22 Type 2 diabetes mellitus with diabetic chronic kidney disease; N18.9 Chronic kidney disease, unspecified; E03.9 Hypothyroidism, unspecified; G47.33 Obstructive sleep apnea (adult) (pediatric); F25.9 Schizoaffective disorder, unspecified; F17.210 Nicotine dependence, cigarettes, uncomplicated; Z91.19 Patient's noncompliance with other medical treatment and regimen; K76.0 Fatty (change of) liver, not elsewhere classified; M51.34 Other intervertebral disc degeneration, thoracic region; Z20.828 Contact with and (suspected) exposure to other viral communicable diseases; Z79.84 Long term (current) use of oral hypoglycemic drugs; Z79.51 Long term (current) use of inhaled steroids
CPT/HCPCS: 12345; 36415; 36416; 70450; 71045; 74177; 80053; 81001; 82962; 83605; 83690; 83735; 84484; 85025; 85651; 86140; 86677; 87086; 87635; 93005; 93010; 94640; 96365; 96368; 96372; 96375; 99283; 99284; C9113; G0378; J0131; J0744; J1200; J1815; J2001; J2060; J2270; J2405; J2765; J3475; J3480; J3535; J7030; Q9967; S0030

== ENCOUNTER 2019-09-09 06:00 | Outpatient (RCR) | payer MEDICARE, MEDICAID, SELFPAY | END 2019-10-08 23:59 | disposition home or self-care (01) | LOC: MPT 06:00 | PROVIDERS: PCP Nurse Practitioner; Visit Provider Licensed Practical Nurse | DX: M51.34 Other intervertebral disc degeneration, thoracic region (principal) | CPT/HCPCS: 97110; 97140; 97162; G0283 ==

== ENCOUNTER 2019-10-28 08:47 | Outpatient (CLI) | payer MEDICARE, MEDICAID, SELFPAY ==
--- NOTE | 2019-10-28 08:55 | MR_ITS ---
WS: [id number] MRI CERVICAL SPINE NONCONTRAST TECHNIQUE: Sagittal T1, T2 and STIR imaging. Axial T2, gradient, and fiesta imaging. CLINICAL INFORMATION: INTERVERTEBRAL DISC DEGENERATION COMPARISON: None. FINDINGS: Straightening of the normal cervical lordosis. Cord signal is normal. C2-C3: Normal. C3-C4: No significant disc bulging. Mild bilateral foraminal narrowing. Mild facet arthropathy. Spina l canal is patent. C4-C5: No significant disc bulging. Moderate facet arthropathy. Spinal canal is patent. Mild bilatera l foraminal narrowing. C5-C6: Tiny central disc protrusion. Spinal canal is patent. Mild bilateral foraminal narrowing. Mild facet arthropathy. C6-C7: No significant disc bulging. Mild right and no significant left foraminal narrowing. Spinal ca nal is patent. C7-T1: No significant disc bulging. Mild left greater than right bony foraminal narrowing Visualized brain stem structures: Normal. Prevertebral soft tissues: Normal. MR/MR cervical spin wo con* [id number] IMPRESSION: 1. Normal cervical alignment. No high-grade central canal stenosis. Cord signa l is normal. 2. Tiny shallow disc protrusions at C5-C6 and C6-C7 without significant spinal canal or foraminal narrowing described above. 3. Mild multilevel bony foraminal narrowing described above.
--- NOTE | 2019-10-28 09:30 | MR_ITS ---
WS: [id number] MRI THORACIC SPINE WITHOUT CONTRAST TECHNIQUE: Sagittal T1, T2 and STIR imaging. Axial T2 imaging. Noncontrast imaging obtained. CLINICAL INFORMATION: M51.34 Other intervertebral disc degeneration, thoracic r... COMPARISON: None. FINDINGS: Mild thoracic curve. Mild thoracic kyphosis. Tiny central protrusion mid thoracic spine without signi ficant spinal canal or foraminal narrowing. Tiny central protrusion more prominent at right T7-8 with slight contact of the thoracic cord. Mild to moderate facet arthropathy lower thoracic spine. MR/MR thoracic spin wo con* [id number] IMPRESSION: 1. Mild thoracic curve. Mild thoracic kyphosis. 2. Tiny right shallow central protrusion T7-8 with slight contact of the thora cic cord. Spinal canal is patent. 3. Moderate facet arthropathy lower thoracic spine. 4. No high-grade spinal canal or foraminal narrowing.
--- NOTE | 2019-10-28 11:00 | XRR_ITS ---
PROCEDURE INFORMATION: Exam: XR Cervical Spine, 2 or 3 Views Exam date and time: 10/28/2019 10:15 AM Age: 59 years old Clinical indication: Patient HX: C/O chronic neck pain x 20 years TECHNIQUE: Imaging protocol: XR of the cervical spine, 2 or 3 views. COMPARISON: MR cervical spin wo con* [id number] 10/28/2019 8:52 AM FINDINGS: Vertebrae: Normal. No acute fracture. Normal alignment. Examination is negative for instability with flexion and extension maneuvers Soft tissues: Unremarkable. XR/XR cervical spine fl/ex [id number] IMPRESSION: No acute findings. Negative for instability with flexion and extension maneuvers
== END 2019-10-28 08:48 | disposition home or self-care (01) ==
LOC: RADWPI 08:50
PROVIDERS: Family Provider Family Medicine; PCP Family Medicine; Visit Provider Licensed Practical Nurse
DX: M51.34 Other intervertebral disc degeneration, thoracic region (principal); M47.814 Spondylosis without myelopathy or radiculopathy, thoracic region; M50.223 Other cervical disc displacement at C6-C7 level
CPT/HCPCS: 72040; 72141; 72146

== ENCOUNTER → 2019-11-28 14:32 | Outpatient (BNVA) | payer MEDICARE, MEDICAID, SELFPAY | PROVIDERS: Family Provider Family Medicine; PCP Family Medicine; Visit Provider Licensed Practical Nurse | DX: M51.34 Other intervertebral disc degeneration, thoracic region (principal); M47.814 Spondylosis without myelopathy or radiculopathy, thoracic region; M50.30 Other cervical disc degeneration, unspecified cervical region; M51.17 Intervertebral disc disorders with radiculopathy, lumbosacral region; F17.210 Nicotine dependence, cigarettes, uncomplicated | CPT/HCPCS: 99213 ==

== ENCOUNTER → 2019-12-04 09:00 | Outpatient (BNVA) | payer MEDICARE, MEDICAID, SELFPAY | PROVIDERS: Family Provider Family Medicine; PCP Family Medicine; Visit Provider Anesthesiology Pain Medicine | DX: M54.6 Pain in thoracic spine (principal); M54.2 Cervicalgia; F17.210 Nicotine dependence, cigarettes, uncomplicated | CPT/HCPCS: 99204 ==

== ENCOUNTER → 2019-12-09 13:14 | Outpatient (BNVA) | payer MEDICARE, MEDICAID, SELFPAY | PROVIDERS: Family Provider Family Medicine; PCP Family Medicine; Visit Provider Anesthesiology Pain Medicine | DX: M47.812 Spondylosis without myelopathy or radiculopathy, cervical region (principal); F17.210 Nicotine dependence, cigarettes, uncomplicated | CPT/HCPCS: 64490; 64491; 64492; J3490 ==

== ENCOUNTER → 2020-05-05 08:58 | Outpatient (BNVA) | payer MEDICARE, MEDICAID, SELFPAY | PROVIDERS: Family Provider Family Medicine; PCP Physician Assistant Medical; Visit Provider Specialist | DX: R20.0 Anesthesia of skin (principal); R20.2 Paresthesia of skin; G56.11 Other lesions of median nerve, right upper limb; F17.210 Nicotine dependence, cigarettes, uncomplicated | CPT/HCPCS: 95908 ==

== ENCOUNTER → 2020-05-12 09:08 | Outpatient (BNVA) | payer MEDICARE, MEDICAID, SELFPAY | PROVIDERS: Family Provider Family Medicine; PCP Physician Assistant Medical; Visit Provider Podiatrist Foot & Ankle Surgery | DX: M79.671 Pain in right foot (principal); M77.51 Other enthesopathy of right foot and ankle | CPT/HCPCS: 73630 ==

== ENCOUNTER → 2020-07-21 09:31 | Outpatient (BNVA) | payer MEDICARE, MEDICAID, SELFPAY | PROVIDERS: Family Provider Family Medicine; PCP Physician Assistant Medical; Referring Provider Physician Assistant Medical; Visit Provider Anesthesiology Pain Medicine | DX: M50.30 Other cervical disc degeneration, unspecified cervical region (principal); M47.814 Spondylosis without myelopathy or radiculopathy, thoracic region; M51.17 Intervertebral disc disorders with radiculopathy, lumbosacral region; G62.9 Polyneuropathy, unspecified; G56.11 Other lesions of median nerve, right upper limb; F17.210 Nicotine dependence, cigarettes, uncomplicated | CPT/HCPCS: 99214 ==

== ENCOUNTER 2020-08-13 10:09 | Outpatient (CLI) | payer MEDICARE, MEDICAID, SELFPAY ==
--- NOTE | 2020-08-13 10:18 | MM_ITS ---
WS: [id number] SCREENING DIGITAL MAMMOGRAM WITH CAD HISTORY: SCREENING COMPARISON: None available. Bilateral CC and MLO views submitted. Computer aided detection analyzed. Breast composition: There are scattered areas of fibroglandular density. In the posterior RIGHT breas t at 9-10 o'clock is a lobulated soft tissue mass measuring 5 mm. There is an additional ovoid nodule with calcifications measuring 8 mm in the medial inferior LEFT breast at a middle depth. Both of the se areas need further evaluation. MM/[place] [id number] IMPRESSION: BI-RADS: 0-Incomplete: Need additional imaging evaluation FOLLOW UP: Need Additional Imaging RIGHT breast: Spot compression views (CC and MLO). True ML. Ultrasound to follo w if abnormality persists. LEFT breast: Spot compression views (CC and MLO). True ML. Ultrasound to follow if abnormality persists.
== END 2020-08-13 10:10 | disposition home or self-care (01) ==
LOC: RADSHAW 10:14
PROVIDERS: Family Provider Family Medicine; PCP Physician Assistant Medical; Visit Provider Physician Assistant Medical
DX: Z12.31 Encounter for screening mammogram for malignant neoplasm of breast (principal)
CPT/HCPCS: 77067

== ENCOUNTER → 2020-08-19 09:01 | Outpatient (BNVA) | payer MEDICARE, MEDICAID, SELFPAY | PROVIDERS: Family Provider Family Medicine; PCP Physician Assistant Medical; Visit Provider Anesthesiology Pain Medicine | DX: M50.30 Other cervical disc degeneration, unspecified cervical region (principal); M47.814 Spondylosis without myelopathy or radiculopathy, thoracic region; M47.816 Spondylosis without myelopathy or radiculopathy, lumbar region; M51.17 Intervertebral disc disorders with radiculopathy, lumbosacral region; G56.11 Other lesions of median nerve, right upper limb; G62.9 Polyneuropathy, unspecified; F17.210 Nicotine dependence, cigarettes, uncomplicated | CPT/HCPCS: 99205 ==

== ENCOUNTER 2020-11-16 06:00 | Outpatient (RCR) | payer MEDICARE, MEDICAID, SELFPAY | END 2020-12-08 23:59 | disposition home or self-care (01) | LOC: MOT 06:00 | PROVIDERS: PCP Physician Assistant Medical; Referring Provider Orthopaedic Surgery; Visit Provider Orthopaedic Surgery | DX: G56.01 Carpal tunnel syndrome, right upper limb (principal); G56.21 Lesion of ulnar nerve, right upper limb | CPT/HCPCS: 97110; 97140; 97165 ==

== ENCOUNTER → 2020-11-17 13:13 | Outpatient (BNVA) | payer MEDICARE, MEDICAID, SELFPAY | PROVIDERS: PCP Physician Assistant Medical; Visit Provider Podiatrist Foot & Ankle Surgery | DX: M79.671 Pain in right foot (principal); M19.071 Primary osteoarthritis, right ankle and foot; M72.2 Plantar fascial fibromatosis; E11.42 Type 2 diabetes mellitus with diabetic polyneuropathy; R26.81 Unsteadiness on feet; Z91.81 History of falling; L60.3 Nail dystrophy; Z79.4 Long term (current) use of insulin; M76.822 Posterior tibial tendinitis, left leg | CPT/HCPCS: 73630 ==

== ENCOUNTER 2020-11-17 14:09 | Outpatient (CLI) | payer MEDICARE, MEDICAID, SELFPAY | END 2020-11-17 14:10 | disposition home or self-care (01) | LOC: SPT 14:10 | PROVIDERS: PCP Physician Assistant Medical; Visit Provider Podiatrist Foot & Ankle Surgery | DX: Z46.89 Encounter for fitting and adjustment of other specified devices (principal); G56.01 Carpal tunnel syndrome, right upper limb; G56.21 Lesion of ulnar nerve, right upper limb | CPT/HCPCS: 73630; 97760; L4397 ==

== ENCOUNTER → 2021-01-07 10:23 | Outpatient (BNVA) | payer MEDICARE, MEDICAID, SELFPAY | PROVIDERS: PCP Physician Assistant Medical; Visit Provider Anesthesiology Pain Medicine | DX: M47.814 Spondylosis without myelopathy or radiculopathy, thoracic region (principal); M51.17 Intervertebral disc disorders with radiculopathy, lumbosacral region; M47.816 Spondylosis without myelopathy or radiculopathy, lumbar region; M50.30 Other cervical disc degeneration, unspecified cervical region; G56.11 Other lesions of median nerve, right upper limb; G62.9 Polyneuropathy, unspecified; Z91.81 History of falling | CPT/HCPCS: 99214 ==

== ENCOUNTER 2021-01-18 09:28 | Emergency (ER) | payer MEDICARE, MEDICAID, SELFPAY ==
[2021-01-18 09:38] VITALS: BMI 33.9
--- NOTE | 2021-01-18 09:40 | CT_ITS ---
WS: [id number] CT ABDOMEN AND PELVIS WITH CONTRAST HISTORY: Ongoing abdominal pain. Diffuse pain for 4 days. TECHNIQUE: Imaging performed of the abdomen and pelvis with IV contrast. Single phase imaging of the abdomen. Coronal and sagittal reformats are submitted. All CT scans at [facility] use at [address] one of these dose optimization techniques: automated exposure control; mA and/or kV adjustment per patient size (includes targeted exams where dose is matched to clinical indication); or iterative re construction. IV CONTRAST: Omnipaque 300; 95 mL IV. Oral contrast: No DLP: 1752.26 mGy.cm COMPARISON: 08/30/2019 Lower thorax: Mild groundglass changes at the LEFT lung base. Artery is top normal to slightly enlarg ed. No pericardial effusion. No hiatal hernia. Liver/biliary system: Normal size liver. Mild central bile duct dilatation may be physiologic. Portal vein is normal. Gallbladder: Status post cholecystectomy. Pancreas: Normal size pancreas and pancreatic duct. No adjacent inflammation. Spleen: Normal size spleen. No mass or infarct. Adrenal glands: Thickening and hyperinflation small nodules associated with the LEFT adrenal gland ar e stable. Right kidney: Normal. Left kidney: Normal. Aorta: Mild atherosclerosis with no aneurysm. Lymphadenopathy: None. Free fluid: None. GI tract: Normal appendix. No GI tract obstruction is evident. There is a small amount of increased f luid at the terminal ileum and cecum. No mass identified. No significant diverticular disease. No theron dence for colitis. Abdominal wall: Unremarkable abdominal wall. No hernia. Pelvis: No free fluid or adenopathy. Bones: Unremarkable. CT/CT abdomen pelvis w con* [id number] IMPRESSION: 1. No acute abdominal or pelvic abnormalities. 2. Normal appendix. 3. Prior cholecystectomy. 4. Stable LEFT adrenal thickening and adenomas. 5. Mild atherosclerosis aorta.
--- NOTE | 2021-01-18 09:40 | W.ED.ABDPA2 ---
HPI - Abdominal Pain General: Chief Complaint: Abdominal Pain Stated Complaint: N/V, ABD PAIN Time Seen by Provider: 01/18/21 09:29 History of Present Illness: HPI narrative: 60-year-old presents emergency room complaining of abdominal diffuse abdominal pain that began overnight. Patient reports extremely slow colonic transit and abdominal discomfort and history of colitis she has had some vomiting and diarrhea denies hematochezia melena hematemesis cough numbness no fever no dysuria urgency or frequency. She is not been on antibiotics recently. Denies chest pain or shortness of breath MD elicited complaint: abdominal pain Pertinent past history: none Onset (ago): hour(s) Location: Diffuse Quality: cramping Exacerbating factors: nothing Relieving factors: nothing Associated Symptoms: Reports bloating, change in bowel habits, GI cramping, nausea and poor appetite; Denies anorexia, belching, change in stool character, chills, coffee ground emesis, constipation, diarrhea, dyspepsia, dysuria, excessive flatus, fever(s), heartburn, hematochezia, hematuria, hematemesis, fecal incontinence, loose stools, melena, syncope and vomiting Review of Systems Const: Denies: fever(s) or chills ENMT: Denies: throat pain, ear or mastoid pain, nasal discharge or nasal congestion Card: Denies: syncope Resp: Denies: dyspnea, productive cough or non-productive cough GI: Reports: nausea, bloating, GI cramping and change in bowel habits; Denies: vomiting, hematemesis, coffee ground emesis, heartburn, diarrhea, constipation, belching, excessive flatus, fecal incontinence, change in stool character, hematochezia or melena : Denies: dysuria or hematuria Skin/Breast: Denies: rash or pruritus PFSH ED PFSH: Medical History Akathisia CAD (coronary artery disease) CKD (chronic kidney disease) COPD (chronic obstructive pulmonary disease) Degenerative disc disease, cervical Diabetes type 2, controlled Fatty liver disease, nonalcoholic HTN (hypertension) Hypothyroid Intervertebral disc disorder with radiculopathy of lumbosacral region GILMAR (obstructive sleep apnea) Osteoarthritis thoracic spine Schizoaffective disorder Smoking addiction Thoracic degenerative disc disease Surgical History History of delivery (~1988) History of cholecystectomy History of foot surgery (~2010) cyst removal History of knee surgery (~2010) Family History Father Cancer Family/Other Cancer Grandmother Cancer Social History Alcohol intake: never Household members: children Marital status: Single Current occupational status: disabled History of recent travel: No Current gender identity: Female Physical Exam Const: COMMON NORMALS: no acute distress GENERAL APPEARANCE: cooperative and comfortable ORIENTATION/CONSCIOUSNESS: Yes awake, Yes oriented to person, Yes oriented to place and Yes oriented to time HENMT: COMMON NORMALS: normocephalic, atraumatic and hearing grossly normal bilaterally HEAD & SCALP: normocephalic and atraumatic Eye: COMMON NORMALS: Equal, round and reactive pupils present, EOMs intact bilaterally, conjunctivae normal and no scleral icterus CONJUNCTIVA: Yes conjunctivae normal PUPIL: Yes Equal, round and reactive pupils present Neck/C-Spine: COMMON NORMALS: full ROM, no lymphadenopathy, supple and no JVD Lymph: LYMPHATIC: no lymphadenopathy noted and no lymphedema noted Resp: COMMON NORMALS: normal respiratory effort, No retractions, No use of accessory muscles and clear to auscultation bilaterally AUSCULTATION: clear to auscultation bilaterally Cardio: COMMON NORMALS: no JVD, regular rate, regular rhythm and No murmurs present (Cardio) RATE: regular rate RHYTHM: regular rhythm GI: COMMON NORMALS: Soft to palpation and No hepatosplenomegaly present AUSCULTATION: Yes normoactive bowel sounds PALPATION: Yes Soft to palpation, No Tenderness to palpation present (GI), No Guarding due to palpation present (GI) and Yes No hepatosplenomegaly present Extremity: COMMON NORMALS: normal to inspection, capillary refill normal, no clubbing, cyanosis or edema, no calf tenderness and no pedal edema Neuro: SENSORIUM/ORIENTATION: Yes oriented to person, Yes oriented to place and Yes oriented to time Skin: COMMON NORMALS: no rashes or lesions noted GENERAL SKIN EXAM: no rashes or lesions noted Course Vital Signs: Vital signs: Vital Signs Temperature 98.3 F 01/18/21 12:26 Pulse Rate 81 01/18/21 13:08 Respiratory Rate 16 01/18/21 13:08 Blood Pressure 131/61 01/18/21 13:08 Pulse Oximetry 97 01/18/21 13:08 MDM - Abdominal Pain MDM Narrative: Medical decision making narrative: Labs and imaging reviewed. No significant retention of stool. Recommend patient start on dicyclomine. Can use Zofran. Clear liquid diet and advance as tolerated has persistent symptoms follow-up with PCP can look at endoscopy or further evaluation. Lab Data: Labs: Lab Results 01/18/21 01/18/21 01/18/21 10:00 10:00 10:29 WBC 8.7 10^3/uL 10^3/ uL (4.0-10.0) RBC 4.66 10^6/uL 10^6 /uL (4.1-5.3) Hgb 14.0 g/dL g/dL (11.5-15.3) Hct 42.6 % % (37.0-47.0) MCV 91.4 fl fl (81-99) MCH 30.0 pg pg (28.0-34.0) MCHC 32.9 g/dL g/dL (30.0-36.0) RDW 15.7 % H % (12.1-15.1) Plt Count 337 10^3/cmm 10^3 /cmm (130-400) MPV 10.3 fL fL (7.4-10.4) Neut % (Auto) 69.2 % % Lymph % (Auto) 21.1 % % [place] % (Auto) 8.1 % % Eos % (Auto) 0.5 % % Baso % (Auto) 0.8 % % Neut # (Auto) 6.05 10^3/uL 10^3 /uL (1.8-7.7) Lymph # (Auto) 1.8 10^3/uL 10^3/ uL (0.8-4.8) [place] # (Auto) 0.7 10^3/uL 10^3/ uL (0.2-0.9) Eos # (Auto) 0.0 10^3/uL 10^3/ uL (0.0-0.8) Baso # (Auto) 0.1 10^3/uL 10^3/ uL (0.0-0.1) Nucleated RBC % (a uto) 0 % % Nucleated RBCs # 0.0 /100WBC /100W BC Sodium 140 mmol/L mmol/L (136-145) Potassium 4.8 mmol/L mmol/L (3.5-5.1) Chloride 102 mmol/L mmol/L (98-107) Carbon Dioxide 28 mmol/L mmol/L (22-29) Anion Gap 14.8 (5-19) BUN 23 mg/dL H mg/dL (6-20) Creatinine 0.7 mg/dL mg/dL (0.5-0.9) GFR Calculation 85.9 mL/min L mL/ min (90-130) Glucose 77 mg/dL mg/dL (65-115) POC Glucose Calculated Osmolal ity 292 mOsm/kg mOsm/ kg (285-295) Calcium 9.6 mg/dL mg/dL (8.5-10.5) Total Bilirubin 0.2 mg/dL mg/dL (0.15-1.2) AST 14 U/L U/L (0-32) ALT 14 U/L U/L (0-33) Alkaline Phosphata se 81 IU/L IU/L (35-105) Creatine Kinase 137 U/L U/L (26-192) Total Protein 6.8 g/dL g/dL (6.6-8.7) Albumin 4.1 g/dL g/dL (3.5-5.2) Globulin 2.7 g/dL g/dL (1.3-4.6) Lipase 11 U/L L U/L (13-60) Urine Color Yellow (Yellow) Urine Appearance Clear (CLEAR) Urine pH 5 (5-7) Ur Specific Gravit y 1.020 (1.005-1.030) Urine Protein Trace (Negative) Urine Glucose (UA) 4+ H (Normal) Urine Ketones Negative (Negative) Urine Blood Neg (Negative) Urine Nitrate Negative (Negative) Urine Bilirubin 1+ H (Negative) Urine Urobilinogen 1 mg/dL H mg/dL (Negative) Ur Leukocyte Anya ase Negative (Negative) Urine RBC None /hpf /hpf (0-2) Urine WBC None /hpf /hpf (0-5) Ur Squamous Epith Cells 0-4 /hpf H /hpf (0-5) Amorphous Sediment Not Reportable Urine Bacteria 1+ /hpf H /hpf (NONE) Urine Mucus 2+ /hpf /hpf 01/18/21 01/18/21 11:56 12:53 WBC RBC Hgb Hct MCV MCH MCHC RDW Plt Count MPV Neut % (Auto) Lymph % (Auto) [place] % (Auto) Eos % (Auto) Baso % (Auto) Neut # (Auto) Lymph # (Auto) [place] # (Auto) Eos # (Auto) Baso # (Auto) Nucleated RBC % (a uto) Nucleated RBCs # Sodium Potassium Chloride Carbon Dioxide Anion Gap BUN Creatinine GFR Calculation Glucose POC Glucose 61 mg/dL L mg/dL 96 mg/dL mg/dL (70-110) (70-110) Calculated Osmolal ity Calcium Total Bilirubin AST ALT Alkaline Phosphata se Creatine Kinase Total Protein Albumin Globulin Lipase Urine Color Urine Appearance Urine pH Ur Specific Gravit y Urine Protein Urine Glucose (UA) Urine Ketones Urine Blood Urine Nitrate Urine Bilirubin Urine Urobilinogen Ur Leukocyte Anya ase Urine RBC Urine WBC Ur Squamous Epith Cells Amorphous Sediment Urine Bacteria Urine Mucus Discharge Plan Discharge Patient Disposition: Home Clinical Impression: Abdominal pain Condition: Stable Prescriptions: New Zofran 4 mg tablet 4 mg PO Q6H PRN (Reason: nausea and vomiting) Qty: 20 RF: 0 dicyclomine 20 mg tablet 20 mg PO QID Qty: 20 RF: 0 No Action Jardiance 25 mg tablet 25 mg PO DAILY RF: 0 (DME) Walker See Rx Instructions .Route .MEDSUPPLY Qty: 1 RF: 0 Nitrostat 0.4 mg tablet, sublingual 0.4 mg SUBLINGUAL Q5M PRN (Reason: Chest Pain) Qty: 30 RF: 6 fluticasone propionate 50 mcg/actuation spray,suspension 1 spray intranasal DAILY RF: 0 amitriptyline 25 mg tablet 25 mg PO DAILY Qty: 30 RF: 0 fluticasone propion-salmeterol [Advair Diskus] 250-50 mcg/dose blister with device 1 inh INHALATION BID RF: 0 ergocalciferol (vitamin D2) [Vitamin D2] 1,250 mcg (50,000 unit) capsule 1,250 mcg PO Q7D RF: 0 montelukast 10 mg tablet 10 mg PO DAILY RF: 0 metoprolol succinate 25 mg tablet extended release 24 hr 25 mg PO DAILY RF: 0 pravastatin 80 mg tablet 80 mg PO DAILY RF: 0 Toujeo SoloStar U-300 Insulin 300 unit/mL (1.5 mL) insulin pen 70 unit SUBCUT DAILY RF: 0 albuterol sulfate [ProAir HFA] 90 mcg/actuation HFA aerosol inhaler 2 puff INHALATION Q6H PRN (Reason: Shortness Of Breath) RF: 0 levothyroxine 300 mcg tablet 350 mcg PO DAILY RF: 0 nabumetone 500 mg tablet 1,000 mg PO BID RF: 0 pioglitazone PO RF: 0 (DME) Night Splint See Rx Instructions .Route .MEDSUPPLY Qty: 1 RF: 0 azithromycin 250 mg tablet See Rx Instructions PO .COMPLEX RF: 0 [id number]-[id number]-OV 3.5-10,000-1 mg/mL-unit/mL-% drops,suspension 4 drp otic (ear) TID 14 Days Qty: 10 RF: 0 sodium chloride 0.9 % Solution 10 ml epidural ONCE Qty: 1 RF: 0 bupivacaine (PF) 0.25 % (2.5 mg/mL) solution 10 ml Infiltration ONCE Qty: 1 RF: 0 lidocaine (PF) 10 mg/mL (1 %) solution 10 mg SUBCUT ONCE Qty: 1 RF: 0 dexamethasone sodium phos (PF) 10 mg/mL solution 8 mg Infiltration ONCE Qty: 0.8 RF: 0 lisinopril-hydrochlorothiazide 20-12.5 mg tablet See Rx Instructions .ROUTE .COMPLEX Qty: 90 RF: 3 Dexilant 30 mg capsule,biphase delayed releas 30 mg PO BID Qty: 60 RF: 0 Discharge Orders: Discharge ED (Routine); Ordered 01/18/21 Ordered By: Juan De Paz Referrals: Diogenes Lopez [Primary Care Provider] - Discharge Diet: Clear Liquid Discharge Activity: Increase activity as tolerated Patient Instructions: Abdominal Pain (ED), Opioid Safety Activity Restrictions/Additional Instructions: Clear liquid diet for 24 to 48 hours and advance as tolerated. Coding Level of Care Code ED [employer] for Sydney Avila
[2021-01-18 10:17] LABS: Basophils # 0.1 10^3/uL (0.0-0.1); Basophils % 0.8 %; Eosinophils % 0.5 %; Hematocrit 42.6 % (37.0-47.0); Lymphocytes # 1.8 10^3/uL (0.8-4.8); Lymphocytes % 21.1 %; Mean Corpuscular HGB Conc 32.9 g/dL (30.0-36.0); Mean Corpuscular Volume 91.4 fl (81-99); Mean Platelet Volume 10.3 fL (7.4-10.4); Monocytes # 0.7 10^3/uL (0.2-0.9); Monocytes % 8.1 %; Neutrophils # 6.05 10^3/uL (1.8-7.7); Neutrophils % 69.2 %; Nucleated Red Blood Cells % 0 %; Platelet Count 337 10^3/cmm (130-400); Red Blood Count 4.66 10^6/uL (4.1-5.3); Red Cell Distribution Width 15.7 % (12.1-15.1); White Blood Count 8.7 10^3/uL (4.0-10.0)
[2021-01-18 10:52] LABS: Alanine Aminotransferase 14 U/L (0-33); Albumin Level 4.1 g/dL (3.5-5.2); Alkaline Phosphatase 81 IU/L (35-105); Anion Gap 14.8 (5-19); Aspartate Amino Transferase 14 U/L (0-32); Blood Urea Nitrogen 23 mg/dL (6-20); Calcium 9.6 mg/dL (8.5-10.5); Carbon Dioxide 28 mmol/L (22-29); Chloride 102 mmol/L (98-107); Creatine Phosphokinase 137 U/L (26-192); Globulin 2.7 g/dL (1.3-4.6); Glomerular Filtration Rate 85.9 mL/min (90-130); Glucose 77 mg/dL (65-115); Lipase 11 U/L (13-60); Osmolality Calculated 292 mOsm/kg (285-295); Potassium 4.8 mmol/L (3.5-5.1); Sodium 140 mmol/L (136-145); Total Bilirubin 0.2 mg/dL (0.15-1.2); Total Protein 6.8 g/dL (6.6-8.7)
[2021-01-18] MEDS: ondansetron 2 mg/ML SDV 2 mL 4 MG IVP (11:29)
[2021-01-18 11:31] VITALS: RESP 13; O2SAT 99
[2021-01-18] MEDS: sodium chloride 0.9% 1,000 ML 999 ML IV (11:31)
[2021-01-18] MEDS: morphine 4 mg/mL SDV 1 mL IVP (11:31)
[2021-01-18 11:36] VITALS: BP 139/60; PULSE 67; RESP 13; TEMP 36.6; O2SAT 100
--- NOTE | 2021-01-18 11:58 | PC.NURSE ---
Pt blood glucose is 61. Provider notified. Pt states that she took 80 units of insulin this am without eating.
[2021-01-18 11:59] LABS: Glucose Point of Care 61 mg/dL (70-110)
[2021-01-18 12:23] LABS: Add Urine Microscopic? YES; Bilirubin Urine 1+ (Negative); Blood Urine Neg (Negative); Glucose Urine UA 4+ (Normal); Ketones Urine Negative (Negative); Leukocyte Esterase Urine Negative (Negative); Nitrate Urine Negative (Negative); Protein Urine Trace (Negative); Urine Appearance Clear (CLEAR); Urine Color Yellow (Yellow); Urobilinogen Urine 1 mg/dL (Negative); pH Urine 5 (5-7)
[2021-01-18 12:24] LABS: Bacteria Urine 1+ /hpf; Mucus Urine 2+ /hpf; Squamous Epithelial Cell Urine 0-4 /hpf (0-5)
[2021-01-18 12:26] VITALS: BP 137/53; PULSE 79; RESP 17; TEMP 36.8; O2SAT 100
--- NOTE | 2021-01-18 12:32 | PC.NURSE ---
Pt reports pain of 4/10 after the medication.
[2021-01-18 12:56] LABS: Glucose Point of Care 96 mg/dL (70-110)
[2021-01-18 13:08] VITALS: BP 131/61; PULSE 81; RESP 16; O2SAT 97
== END 2021-01-18 13:10 | disposition home or self-care (01) ==
PROVIDERS: Emergency Provider Family Medicine; PCP Physician Assistant Medical
DX: R10.9 Unspecified abdominal pain (principal); Z79.4 Long term (current) use of insulin; I25.10 Atherosclerotic heart disease of native coronary artery without angina pectoris; J44.9 Chronic obstructive pulmonary disease, unspecified; E11.9 Type 2 diabetes mellitus without complications; I10 Essential (primary) hypertension
CPT/HCPCS: 36416; 74177; 80053; 81001; 82550; 82962; 83690; 85025; 96361; 96374; 96375; 99284; J2270; J2405; J7030; Q9967

== ENCOUNTER 2021-01-21 13:20 | Outpatient (CLI) | payer MEDICARE, MEDICAID, SELFPAY ==
--- NOTE | 2021-01-21 13:33 | USCV_ITS ---
Noman Selena Age: 60 Gender: F : 1960 Exam Date: 01/21/2021 14:01 Ordering Phys: Chris Carter Technologist: Mervat Fitzpatrick Exam Location: [facility] [place] Indication: AAA SCREENING HISTORY: Diameter (cm) AP x Transverse x Length Velocity (cm/s) Waveform Prox Aorta: 2.35 x 2.48 x 73.10 Mid Aorta: 1.93 x 1.67 x 86.10 Distal Aorta: 1.69 x 2.26 x 86.90 Right Iliac Prox: 0.83 x 0.99 x 83.80 Left Iliac Prox: 0.86 x 0.90 x 80.00 Stent Prox Landing x x Aneurysmal Sac Max x x Lt Lat Sac Dim Rt Lat Sac Dim Stent Dist Landing x x Right Iliac Stent x x Left Iliac Stent x x Right Renal Art Left Renal Art FINDINGS: Comparison: none available. Ectatic abdominal aorta with evidence of atherosclerotic plaque noted. No evidence of abdominal aortic aneurysm. There is evidence of atherosclerotic plaque no significan stenosis in the right common iliac artery. There is evidence of atherosclerotic plaque no significan stenosis in the left common iliac artery. CONCLUSIONS Minimal arteriovascular disease within the abdominal aorta. No aneurysm or rupture identified by ultrasound. Dr. Arabella aRiney DO (Electronically Signed) Final Date: 21 January 2021 14:32 S
== END 2021-01-21 13:21 | disposition home or self-care (01) ==
LOC: RAD 13:22
PROVIDERS: PCP Nurse Practitioner Family; Visit Provider Nurse Practitioner Family
DX: Z13.6 Encounter for screening for cardiovascular disorders (principal)
CPT/HCPCS: 76706

== ENCOUNTER 2021-03-27 12:06 | Emergency (ER) | payer MEDICARE, MEDICAID, SELFPAY ==
[2021-03-27 12:46] VITALS: BP 142/73; PULSE 120; RESP 20; TEMP 36.8; O2SAT 98
[2021-03-27 14:08] LABS: Lactic Sepsis W/Reflex 1.9 mmol/L (0.5-2.2)
[2021-03-27 14:15] LABS: Basophils # 0.1 10^3/uL (0.0-0.1); Basophils % 0.5 %; Eosinophils % 0.1 %; Hematocrit 48.6 % (37.0-47.0); Hemoglobin 15.8 g/dL (11.5-15.3); Lymphocytes # 0.9 10^3/uL (0.8-4.8); Lymphocytes % 4.4 %; Mean Corpuscular HGB Conc 32.5 g/dL (30.0-36.0); Mean Corpuscular Hemoglobin 29.6 pg (28.0-34.0); Mean Platelet Volume 10.7 fL (7.4-10.4); Monocytes # 0.9 10^3/uL (0.2-0.9); Monocytes % 4.5 %; Neutrophils # 17.61 10^3/uL (1.8-7.7); Nucleated Red Blood Cells % 0 %; Platelet Count 377 10^3/cmm (130-400); Red Blood Count 5.34 10^6/uL (4.1-5.3); Red Cell Distribution Width 14.9 % (12.1-15.1); White Blood Count 19.5 10^3/uL (4.0-10.0)
[2021-03-27 14:19] VITALS: BP 166/91; PULSE 100; RESP 20; TEMP 36.8; O2SAT 96
--- NOTE | 2021-03-27 14:22 | CTR_ITS ---
PROCEDURE INFORMATION: Exam: CT Abdomen And Pelvis With Contrast Exam date and time: 03/27/2021 2:22 PM Age: 60 years old Clinical indication: Abdominal pain; Patient HX: Poss. Colitis; Additional info: Eval colitis TECHNIQUE: Imaging protocol: Computed tomography of the abdomen and pelvis with contrast. Radiation optimization: All CT scans at this facility use at least one of these dose optimization techniques: automated exposure control; mA and/or kV adjustment per patient size (includes targeted exams where dose is matched to clinical indication); or iterative reconstruction. Contrast material: OMNI 300; Contrast volume: 95 ml; Contrast route: INTRAVENOUS (IV); COMPARISON: CT abdomen pelvis w con* [id number] 01/18/2021 10:03 AM RADIATION DOSE METRICS: Total DLP (mGy-cm): 1769.03 FINDINGS: Liver: Normal. No mass. Gallbladder and bile ducts: Mild biliary dilation appears chronic. Cholecystectomy. Pancreas: Normal. No ductal dilation. Spleen: Normal. No splenomegaly. Adrenal glands: Left adrenal 2.6 cm nodular density again seen similar dating back to 08/30/2019 suggestive of a benign lesion given stability. Kidneys and ureters: Normal. No hydronephrosis. Stomach and bowel: Left colon wall thickening, most prominent in the region of the rectum with some surrounding edema suggestive of a colitis. Appendix: No evidence of appendicitis. Intraperitoneal space: Unremarkable. No free air. No significant fluid collection. Vasculature: Unremarkable. No abdominal aortic aneurysm. Lymph nodes: Unremarkable. No enlarged lymph nodes. Urinary bladder: Unremarkable as visualized. Reproductive: Unremarkable as visualized. Bones/joints: Unremarkable. No acute fracture. Soft tissues: Unremarkable. CT/CT abdomen pelvis w con* [id number] IMPRESSION: 1. Left colon wall thickening, most prominent in the region of the rectum with some surrounding edema suggestive of a colitis. 2. Mild biliary dilation appears chronic. 3. Cholecystectomy. 4. Left adrenal 2.6 cm nodular density again seen similar dating back to 08/30/2019 suggestive of a benign lesion given stability.
[2021-03-27 14:24] LABS: Alanine Aminotransferase 15 U/L (0-33); Albumin Level 4.5 g/dL (3.5-5.2); Alkaline Phosphatase 124 IU/L (35-105); Anion Gap 22.1 (5-19); Aspartate Amino Transferase 13 U/L (0-32); Blood Urea Nitrogen 24 mg/dL (6-20); Calcium 9.5 mg/dL (8.5-10.5); Carbon Dioxide 22 mmol/L (22-29); Chloride 98 mmol/L (98-107); Globulin 3.1 g/dL (1.3-4.6); Glomerular Filtration Rate 73.7 mL/min (90-130); Glucose 253 mg/dL (65-115); Lipase 13 U/L (13-60); Osmolality Calculated 299 mOsm/kg (285-295); Potassium 4.1 mmol/L (3.5-5.1); Sodium 138 mmol/L (136-145); Total Bilirubin 0.3 mg/dL (0.15-1.2); Total Protein 7.6 g/dL (6.6-8.7)
[2021-03-27] MEDS: sodium chloride 0.9% 1,000 ML 999 ML IV ×2 (14:30→14:56)
--- NOTE | 2021-03-27 14:35 | W.ED.GENADLT ---
HPI - General Adult General: Chief complaint: Abdominal Pain Stated complaint: CONSTIPATION/ NAUSEA/ VOMITING Time Seen by Provider: 03/27/21 13:59 History of Present Illness: HPI narrative: Patient is a 60-year-old female with a history of cholecystectomy, CAD awaiting stress test on Monday, COPD, diabetes, prior history of colitis, hypothyroidism who presents emergency room with acute onset nausea vomiting and bloody stool since 6 AM. Patient not on any anticoagulation. Patient states that she has been having diffuse abdominal pain is worse compared to when she had her abdominal pain back in January. Patient has not been to tolerate p.o. patient reports only 3 episodes of light blood in the stool. Denies any melena or hematemesis. Denies any cough, runny nose, or sore throat. Onset: 6am Duration: ongoing Location: home Severity:moderate Review of Systems Narrative: Constitutional: No fever, no chills. HEENT: No vision changes CV: No chest pain, no palpitations PULM: no cough, no dyspnea. GI: +diffuse abdominal pain, +N/+V/+D. +mild hematochezia : No dysuria MSKEL: No muscle pain SKIN: No new rashes, no lesions. NEURO: No headache, no focal weakness. HEME: No visible bruises PSYCH: Normal mood PFSH ED PFSH: Medical History Akathisia CAD (coronary artery disease) CKD (chronic kidney disease) COPD (chronic obstructive pulmonary disease) Degenerative disc disease, cervical Diabetes type 2, controlled Fatty liver disease, nonalcoholic HTN (hypertension) Hypothyroid Intervertebral disc disorder with radiculopathy of lumbosacral region GILMAR (obstructive sleep apnea) Osteoarthritis thoracic spine Schizoaffective disorder Smoking addiction Thoracic degenerative disc disease Surgical History History of delivery (~1988) History of cholecystectomy History of foot surgery (~2010) cyst removal History of knee surgery (~2010) Family History (Updated 02/23/21 @ 14:35 by Maryann Fernandes) Father Cancer Family/Other Cancer Grandmother Cancer Other Schizoaffective disorder Social History Smoking and tobacco status: current every day smoker cigarettes Packs smoked per day: 1 Years cigarettes smoked: 48 Alcohol intake: never Household members: children Marital status: Single Current occupational status: disabled History of recent travel: No Current gender identity: Female Physical Exam Narrative: EXAM NARRATIVE: Head: Atraumatic Eyes: PERRL, conjunctiva without injection ENT: Mucous membrane dry NECK: Supple, ROM intact LUNGS: LCTAB, no crackles/rhonchi CV: Sinus tachycardia ABDOMEN: Soft, +diffuse TTP. NO guarding rebound, guarding, rigidity. No CVA tenderness to percussion. Neg Parker/Neg McBurney's point tenderness, no suprabupic tenderness to palpation. EXTREMITY: Normal ROM SKIN: No rash or erythema NEURO: Awake and alert, no focal motor deficits PSYCH: Normal mood and affect Course Vital Signs: Vital signs: Vital Signs Temperature 98.2 F 03/27/21 14:19 Pulse Rate 69 03/27/21 15:49 Respiratory Rate 18 03/27/21 15:49 Blood Pressure 166/91 03/27/21 14:19 Pulse Oximetry 92 03/27/21 15:49 MDM - General Adult MDM Narrative: Medical decision making narrative: 60-year-old female with history of colitis, CAD, COPD diabetes, hypothyroidism presented to emergency room with diffuse abdominal pain since 6 AM with diarrhea and occasional streaks of blood. On exam, patient looks to be in moderate distress with Fuhs tenderness palpation. Patient is noted to have mild streaks of blood in the stool. No melena appreciated. Patient is afebrile, appears to be dry mildly tachycardic. White count of 19.[address] of the pelvis showed colitis. Stool sample has been sent at this time. Patient received Zofran, Reglan, 2 L IVF with significant improvement in nausea vomiting. Patient is able to tolerate p.o. at this time. Rx tylenol PRN abd pain, maalox/pepcid PRN dyspepsia, and zofran PRN nausea/vomiting, cefdinir and metronidazole for colitis with leukocytosis I have given patient follow up with our director case management to be seen by our primary care team for management of colitis. Patient aware of a call from our director case management to schedule for appointment(s) and verbalizes understanding of the importance of following up. Disposition: Discharge. Patient counseled regarding diagnostic impression, treatment plan. Patient given ED strict return precautions to return for continuation, worsening, or development of new symptoms. Instructed to f/u w/ PCP regarding symptoms today. Patient verbalized understanding. Lab Data: Labs: Lab Results 03/27/21 03/27/21 03/27/21 13:24 13:24 13:24 WBC 19.5 10^3/uL H 10 ^3/uL (4.0-10.0) RBC 5.34 10^6/uL H 10 ^6/uL (4.1-5.3) Hgb 15.8 g/dL H g/dL (11.5-15.3) Hct 48.6 % H % (37.0-47.0) MCV 91.0 fl fl (81-99) MCH 29.6 pg pg (28.0-34.0) MCHC 32.5 g/dL g/dL (30.0-36.0) RDW 14.9 % % (12.1-15.1) Plt Count 377 10^3/cmm 10^3 /cmm (130-400) MPV 10.7 fL H fL (7.4-10.4) Neut % (Auto) 90.0 % % Lymph % (Auto) 4.4 % % Kinney % (Auto) 4.5 % % Eos % (Auto) 0.1 % % Baso % (Auto) 0.5 % % Neut # (Auto) 17.61 10^3/uL H 1 0^3/uL (1.8-7.7) Lymph # (Auto) 0.9 10^3/uL 10^3/ uL (0.8-4.8) Kinney # (Auto) 0.9 10^3/uL 10^3/ uL (0.2-0.9) Eos # (Auto) 0.0 10^3/uL 10^3/ uL (0.0-0.8) Baso # (Auto) 0.1 10^3/uL 10^3/ uL (0.0-0.1) Nucleated RBC % (a uto) 0 % % Nucleated RBCs # 0.0 /100WBC /100W BC Sodium 138 mmol/L mmol/L (136-145) Potassium 4.1 mmol/L mmol/L (3.5-5.1) Chloride 98 mmol/L mmol/L (98-107) Carbon Dioxide 22 mmol/L mmol/L (22-29) Anion Gap 22.1 H (5-19) BUN 24 mg/dL H mg/dL (6-20) Creatinine 0.8 mg/dL mg/dL (0.5-0.9) GFR Calculation 73.7 mL/min L mL/ min (90-130) Glucose 253 mg/dL H mg/dL (65-115) POC Glucose Calculated Osmolal ity 299 mOsm/kg H mOs m/kg (285-295) Lactic Acid 1.9 mmol/L mmol/L (0.5-2.2) Calcium 9.5 mg/dL mg/dL (8.5-10.5) Total Bilirubin 0.3 mg/dL mg/dL (0.15-1.2) AST 13 U/L U/L (0-32) ALT 15 U/L U/L (0-33) Alkaline Phosphata se 124 IU/L H IU/L (35-105) Total Protein 7.6 g/dL g/dL (6.6-8.7) Albumin 4.5 g/dL g/dL (3.5-5.2) Globulin 3.1 g/dL g/dL (1.3-4.6) Lipase 13 U/L U/L (13-60) Urine Color Urine Appearance Urine pH Ur Specific Gravit y Urine Protein Urine Glucose (UA) Urine Ketones Urine Blood Urine Nitrate Urine Bilirubin Urine Urobilinogen Ur Leukocyte Anya ase 03/27/21 03/27/21 14:40 18:14 WBC RBC Hgb Hct MCV MCH MCHC RDW Plt Count MPV Neut % (Auto) Lymph % (Auto) Kinney % (Auto) Eos % (Auto) Baso % (Auto) Neut # (Auto) Lymph # (Auto) Kinney # (Auto) Eos # (Auto) Baso # (Auto) Nucleated RBC % (a uto) Nucleated RBCs # Sodium Potassium Chloride Carbon Dioxide Anion Gap BUN Creatinine GFR Calculation Glucose POC Glucose 399 mg/dL H mg/dL (70-110) Calculated Osmolal ity Lactic Acid Calcium Total Bilirubin AST ALT Alkaline Phosphata se Total Protein Albumin Globulin Lipase Urine Color Yellow (Yellow) Urine Appearance Clear (CLEAR) Urine pH 5 (5-7) Ur Specific Gravit y 1.015 (1.005-1.030) Urine Protein Neg (Negative) Urine Glucose (UA) 4+ H (Normal) Urine Ketones 1+ H (Negative) Urine Blood Neg (Negative) Urine Nitrate Negative (Negative) Urine Bilirubin Neg (Negative) Urine Urobilinogen Norm mg/dL mg/dL (Negative) Ur Leukocyte Anya ase Negative (Negative) Imaging Data^: Other Imaging: Radiologist's impression: [address] [id number] Scan ReportSigned Patient: Selena Tineo #: [id number]: 1960Acct#:[id number]/Sex: 60 / FADM Date: 03/27/21Loc: ERRoom/Bed:Attending Dr: Ordering Provider/Ordering MD: Payam Karimi MD Date of Service: 03/27/21 Procedure(s): CT abdomen pelvis w con* [id number] Accession Number(s): [id number] Report Number: [id number] PROCEDURE INFORMATION: Exam: CT Abdomen And Pelvis With Contrast Exam date and time: 03/27/2021 2:22 PM Age: 60 years old Clinical indication: Abdominal pain; Patient HX: Poss. Colitis; Additional info: Eval colitis TECHNIQUE: Imaging protocol: Computed tomography of the abdomen and pelvis with contrast. Radiation optimization: All CT scans at this facility use at least one of these dose optimization techniques: automated exposure control; mA and/or kV adjustment per patient size (includes targeted exams where dose is matched to clinical indication); or iterative reconstruction. Contrast material: OMNI 300; Contrast volume: 95 ml; Contrast route: INTRAVENOUS (IV); COMPARISON: CT abdomen pelvis w con* [id number] 01/18/2021 10:03 AM RADIATION DOSE METRICS: Total DLP (mGy-cm): 1769.03 FINDINGS: Liver: Normal. No mass. Gallbladder and bile ducts: Mild biliary dilation appears chronic. Cholecystectomy. Pancreas: Normal. No ductal dilation. Spleen: Normal. No splenomegaly. Adrenal glands: Left adrenal 2.6 cm nodular density again seen similar dating back to 08/30/2019 suggestive of a benign lesion given stability. Kidneys and ureters: Normal. No hydronephrosis. Stomach and bowel: Left colon wall thickening, most prominent in the region of the rectum with some surrounding edema suggestive of a colitis. Appendix: No evidence of appendicitis. Intraperitoneal space: Unremarkable. No free air. No significant fluid collection. Vasculature: Unremarkable. No abdominal aortic aneurysm. Lymph nodes: Unremarkable. No enlarged lymph nodes. Urinary bladder: Unremarkable as visualized. Reproductive: Unremarkable as visualized. Bones/joints: Unremarkable. No acute fracture. Soft tissues: Unremarkable. CT/CT abdomen pelvis w con* [id number] IMPRESSION: 1. Left colon wall thickening, most prominent in the region of the rectum with some surrounding edema suggestive of a colitis. 2. Mild biliary dilation appears chronic. 3. Cholecystectomy. 4. Left adrenal 2.6 cm nodular density again seen similar dating back to 08/30/2019 suggestive of a benign lesion given stability. Dictated By:Marco Sorenson MDSigned By:Marco Sorenson MDSigned Date/Time:03/27/21 1646DD/ 1422 Discharge Plan Discharge Patient Disposition: Home Clinical Impression: Colitis Condition: Stable Prescriptions: New acetaminophen 500 mg tablet 500 mg PO Q6H PRN (Reason: pain) 5 Days Qty: 20 RF: 0 Zofran 4 mg tablet 4 mg PO TID PRN (Reason: nausea and vomiting) 4 Days Qty: 12 RF: 0 Pepcid 20 mg tablet 20 mg PO BID PRN (Reason: abdominal pain) 10 Days Qty: 20 RF: 0 cefdinir 300 mg capsule 300 mg PO BID 5 Days Qty: 10 RF: 0 metronidazole 500 mg tablet 500 mg PO BID 7 Days Qty: 14 RF: 0 No Action Jardiance 25 mg tablet 25 mg PO DAILY RF: 0 (DME) Walker See Rx Instructions .Route .MEDSUPPLY Qty: 1 RF: 0 Nitrostat 0.4 mg tablet, sublingual 0.4 mg SUBLINGUAL Q5M PRN (Reason: Chest Pain) Qty: 30 RF: 6 fluticasone propionate 50 mcg/actuation spray,suspension 1 spray intranasal DAILY RF: 0 fluticasone propion-salmeterol [Advair Diskus] 250-50 mcg/dose blister with device 1 inh INHALATION BID RF: 0 ergocalciferol (vitamin D2) [Vitamin D2] 1,250 mcg (50,000 unit) capsule 1,250 mcg PO Q7D RF: 0 montelukast 10 mg tablet 10 mg PO DAILY RF: 0 metoprolol succinate 25 mg tablet extended release 24 hr 25 mg PO DAILY RF: 0 pravastatin 80 mg tablet 80 mg PO DAILY RF: 0 albuterol sulfate [ProAir HFA] 90 mcg/actuation HFA aerosol inhaler 2 puff INHALATION Q6H PRN (Reason: Shortness Of Breath) RF: 0 levothyroxine 300 mcg tablet 350 mcg PO DAILY RF: 0 Toujeo SoloStar U-300 Insulin 300 unit/mL (1.5 mL) insulin pen 80 unit SUBCUT DAILY RF: 0 pioglitazone PO RF: 0 nabumetone 500 mg tablet 1,000 mg PO BID PRNRF: 0 (DME) Night Splint See Rx Instructions .Route .MEDSUPPLY Qty: 1 RF: 0 lisinopril-hydrochlorothiazide 20-12.5 mg tablet See Rx Instructions .ROUTE .COMPLEX Qty: 90 RF: 3 Dexilant 30 mg capsule,biphase delayed releas 30 mg PO BID Qty: 60 RF: 0 Discharge Orders: Discharge ED (Routine); Ordered 03/27/21 Ordered By: Payam Karimi Referrals: Chris Carter FNP [Primary Care Provider] - Discharge Diet: Advance as tolerated Discharge Activity: Resume usual activity Patient Instructions: Colitis (ED) Activity Restrictions/Additional Instructions: Please come back if you have any worsening abdominal pain, fever or chills, nausea or vomiting, diarrhea, blood in the stool, inability hold down liquid or solids, or any new concerning complaints. Please take your antibiotics as instructed. Watch out for signs of skin changes/redness, mouth redeness or swelling, nausea/vomiting, diarrhea, blood in the urine or any new or concering complaints. Coding Level of Care Code ED Production Engine Repairer for Sydney Avila
[2021-03-27 14:50] LABS: Add Urine Microscopic? NO; Bilirubin Urine Neg (Negative); Blood Urine Neg (Negative); Glucose Urine UA 4+ (Normal); Ketones Urine 1+ (Negative); Leukocyte Esterase Urine Negative (Negative); Nitrate Urine Negative (Negative); Protein Urine Neg (Negative); Specific Gravity, Urine 1.015 (1.005-1.030); Urine Appearance Clear (CLEAR); Urine Color Yellow (Yellow); Urobilinogen Urine Norm (Negative); pH Urine 5 (5-7)
[2021-03-27 14:52] LABS: Charge for UA Resulting for Rev
[2021-03-27] MEDS: ondansetron 2 mg/ML SDV 2 mL 4 MG IVP (14:56)
[2021-03-27] MEDS: famotidine 20 mg/2 mL INJ IVP (14:56)
--- NOTE | 2021-03-27 14:57 | PC.NURSE ---
Urine collected via female speci-cath
--- NOTE | 2021-03-27 15:37 | ECG_ITS ---
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
[2021-03-27] MEDS: LORazepam 2 mg/mL INJ 1 mL IVP (15:43)
[2021-03-27] MEDS: metoclopramide 5 mg/mL SDV 2 mL IVP (15:43)
--- NOTE | 2021-03-27 15:48 | PC.NURSE ---
patient states she is not able to sit still for EKG - Mu notified and new orders put in
[2021-03-27 15:49] VITALS: PULSE 69; RESP 18; O2SAT 92
[2021-03-27] MEDS: iohexol 300 mg/mL 100 mL Btl IV (16:11)
[2021-03-27] MEDS: famotidine 20 mg Tablet PO (17:55)
[2021-03-27 18:18] LABS: Glucose Point of Care 399 mg/dL (70-110)
[2021-03-27 20:26] VITALS: BP 108/62; PULSE 69; RESP 18; O2SAT 96
--- NOTE | 2021-03-30 15:39 | PC.SOCIAL ---
Addendum entered by Christina Dukes, RN 03/30/21 15:42: Pt retiurned call and indicates she has been seen by Dr Grady in [facility] and the clinic is waiting on records prior to scheduling another appt. She plans to try and be seen by this provider ongoing however this nurse let her know if she has concerns and decides to be seen at another clinic would be happy to assist. She is concerned that it is taking so long for Dr Grady office to get back with her. She has this nurse number in case she needs further assistance. Original Note: Referral from ED to establish PCP. Unable to reach patient left message.
== END 2021-03-27 18:30 | disposition home or self-care (01) ==
PROVIDERS: Physician Assistant; Emergency Provider Emergency Medicine
DX: K52.9 Noninfective gastroenteritis and colitis, unspecified (principal); I25.10 Atherosclerotic heart disease of native coronary artery without angina pectoris; J44.9 Chronic obstructive pulmonary disease, unspecified; E11.9 Type 2 diabetes mellitus without complications; I10 Essential (primary) hypertension; F17.210 Nicotine dependence, cigarettes, uncomplicated
CPT/HCPCS: 36415; 36416; 74177; 80053; 81003; 82962; 83605; 83690; 85025; 93005; 96361; 96374; 96375; 99284; J2060; J2405; J2765; J3490; J7030; Q9967

== ENCOUNTER 2021-04-08 07:20 | Outpatient (CLI) | payer MEDICARE, MEDICAID, SELFPAY ==
[2021-04-08 07:40] VITALS: BMI 33.4
--- NOTE | 2021-04-08 07:42 | ECG_ITS ---
[facility] Test Date: 2021-04-08 Pat Name: Selena Tineo Department: Room: Gender: Female Dedenter: Bernie Horton : 1960 Requested By: Lizette Salvador Order Number: [id number] Nancy MD: Lizette Salvador M.D. Interpretive Statements NAME OF STUDY: LEXISCAN SESTAMIBI STRESS TEST INDICATION: Chest Pain PROCEDURE: At the baseline, the blood pressure was 122/58 mm Hg with a heart rate of 61 bpm. The electrocardiogram showed sinus rhythm, normal axis and non specific T wave abnormality. ??? The Lexiscan was infused over a period of 20 seconds. A total of 0.4 milligrams of Lexiscan was infused. The stress phase was continued for a total of 5 minutes. Heart rate at the end of the stress phase was 88 bpm with a blood pressure of 151/69 mm Hg. The EKG at the peak infusion revealed sinus rhythm with no significant ST-T wave changes. Interpretation limited by artifact. ??? Sestamibi was injected 20 seconds after the Lexiscan infusion. ??? Blood pressure at the end of the recovery phase was 151/69 mm Hg with a heart rate of 112 beats per minute. ??? CONCLUSION: 1. No significant EKG changes with the] LexiScan infusion. Interpretation limited by artifact. 2. No LexiScan induced chest pain or cardiac arrhythmia. 3. Normal blood pressure and heart rate response. 4. Sestamibi/sestamibi perfusion scan pending; see separate report. Electronically Signed On 04-11-2021 13:38:43 TAKER AWAY by Lizette Salvador M.D. [id number]
--- NOTE | 2021-04-08 07:42 | NMCV_ITS ---
NM kaylee perf SPECT r/s* [id number] Selena Tineo Age: 60 Gender: F : 1960 Exam Date: 04/08/2021 08:35 Ordering Phys: Lizette Salvador MD ([email or web address]) Technologist: ALPHONSE Frances Exam Location: [facility] Indications: CHEST PAIN STRESS TEST Please see separate stress test report in [facility] for full findings IMAGE PROTOCOL Rest/Stress 1 Lexiscan Day Radiopharmaceutical Dose (mCi) Administration Site Administered by Rest: Tc-99m 10.7 IV ALPHONSE Patterson Sestamibi Stress:Tc-99m 32.7 IV ALPHONSE Patterson Sestamibi Rest: 08-Apr-2021 60 Discovery 630 Stress: 08-Apr-2021 30 Discovery 630 0.4mg Lexiscan. Supine position only as patient was unable to lay prone. SPECT RESULTS Technical Quality: Excellent Raw Data Analysis: Normal Image Corrections: No attenuation or motion correction applied Summed Stress Score: 0 Summed Rest Score: 0 Summed Difference Score: 0 PERFUSION FINDINGS Small sized perfusion abnormality of mild severity of apical inferior and apical lateral clayton with subtle reversibility on supine stress images. FUNCTIONAL RESULTS (calculated via Gated SPECT) Stress Image LV EF (%): 84 Stress EDV (mL):92 TID: 1.15 Stress ESV (mL):15 FUNCTIONAL FINDINGS: The left ventricle is normal in size. Transient Ischemia Dilatation of 1.1. There is normal left ventricular systolic function. The left ventricular ejection fraction is hyperdynamic with a value of 84%. There is normal left ventricular wall thickening with no regional wall motion abnormality. Normal end diastolic and end systolic volumes. IMPRESSIONS 1. Small sized perfusion abnormality of mild severity of apical inferior and apical lateral clayton with subtle reversibility. 2. This may represent small area of ischemia in left anterior descending artery territory. However, in absence of prone imaging attenuation artifact cannot be completely ruled out. 3. Overall left ventricular systolic function is normal without regional wall motion abnormalities. 4. The left ventricular ejection fraction is hyperdynamic with a value of 84%. 5. EKG portion of the sudy will be reported separately. Lizette Salvador MD (Electronically Signed) Final Date: 14 April 2021 06:23 S
[2021-04-08 09:15] VITALS: BP 151/69; PULSE 93
[2021-04-08] MEDS: regadenoson 0.4 Mg/5 ml Syringe IVP (09:58)
== END 2021-04-08 07:21 | disposition home or self-care (01) ==
LOC: CDL 07:22
PROVIDERS: PCP Nurse Practitioner Family; Visit Provider Internal Medicine Cardiovascular Disease
DX: R07.9 Chest pain, unspecified (principal); I25.10 Atherosclerotic heart disease of native coronary artery without angina pectoris; E11.9 Type 2 diabetes mellitus without complications; I10 Essential (primary) hypertension
CPT/HCPCS: 78452; 93017; A9500; J2785

== ENCOUNTER → 2021-05-11 09:17 | Outpatient (BNVA) | payer MEDICARE, MEDICAID, SELFPAY | PROVIDERS: PCP Nurse Practitioner Family; Visit Provider Podiatrist Foot & Ankle Surgery | DX: E11.42 Type 2 diabetes mellitus with diabetic polyneuropathy (principal); M19.071 Primary osteoarthritis, right ankle and foot; R26.81 Unsteadiness on feet; M79.671 Pain in right foot; Z91.81 History of falling | CPT/HCPCS: 73630 ==

== ENCOUNTER 2021-06-19 14:07 | Emergency (ER) | payer MEDICARE, MEDICAID, SELFPAY ==
[2021-06-19 14:11] VITALS: BP 183/76; PULSE 69; RESP 24; TEMP 37.1; O2SAT 97; BMI 32.5
--- NOTE | 2021-06-19 14:15 | XRR_ITS ---
PROCEDURE INFORMATION: Exam: XR Abdomen Exam date and time: 06/19/2021 2:15 PM Age: 60 years old Clinical indication: Vomiting; Additional info: Diarrhea TECHNIQUE: Imaging protocol: XR of the abdomen. Views: Frontal supine view of the abdomen. 1 View. COMPARISON: CT abdomen pelvis w con* [id number] 03/27/2021 4:07 PM FINDINGS: Tubes, catheters and devices: Surgical clips overlying the gallbladder fossa and left superior pelvis. Gastrointestinal tract: Bowel dilatation, disproportionately involving the colon, in a pattern favoring ileus. Intraperitoneal space: Incomplete visualization of the right superior and lateral abdomen. Vasculature: Vascular calcification. Bones/joints: Degenerative change. Soft tissues: Panniculus and skin fold. XR/XR KUB portable [id number] IMPRESSION: Bowel dilatation, disproportionately involving the colon, in a pattern favoring ileus.
--- NOTE | 2021-06-19 14:38 | W.ED.ANXIETY ---
HPI - Anxiety General: Chief Complaint: Anxiety Stated Complaint: ANXIETY; N/V Time Seen by Provider: 06/19/21 14:09 History of Present Illness: 60-year-old female presents with nausea vomiting and diarrhea. Patient reports that she was seen a couple days ago at a different hospital and told she had a colitis. Patient was started on Flagyl. She reports every time she takes the Flagyl it makes her vomit. Patient reports that she still having a significant amount of diarrhea. That she feels like all she does is sit on the toilet. Patient has some mild abdominal discomfort. No reports of fever or chills. Patient reports that she needs to find some to help with the diarrhea because she cannot get any sleep. Associated symptoms: Reports nausea and vomiting; Deny chest pain, chills, fever(s), headache(s) or palpitations Review of Systems Const: Reports: fatigue; Denies: fever(s) or chills Card: Denies: chest pain or palpitations Resp: Denies: dyspnea, productive cough or wheezing GI: Reports: abdominal pain, nausea, vomiting and diarrhea : Denies: flank pain or difficulty voiding Musc: Reports: other (No complaints) Neuro: Denies: headache(s) Psych: Reports: anxiety PFSH ED PFSH: Medical History Akathisia CAD (coronary artery disease) CKD (chronic kidney disease) COPD (chronic obstructive pulmonary disease) Degenerative disc disease, cervical Diabetes type 2, controlled Fatty liver disease, nonalcoholic History of colitis HTN (hypertension) Hypothyroid Intervertebral disc disorder with radiculopathy of lumbosacral region GILMAR (obstructive sleep apnea) Osteoarthritis thoracic spine Schizoaffective disorder Smoking addiction Thoracic degenerative disc disease Surgical History History of delivery (~1988) History of cholecystectomy History of foot surgery (~2010) cyst removal History of knee surgery (~2010) Family History Father Cancer Family/Other Cancer Grandmother Cancer Other Schizoaffective disorder Social History Smoking and tobacco status: current every day smoker cigarettes Packs smoked per day: 1 Years cigarettes smoked: 48 Alcohol intake: never Household members: children Marital status: Single Current occupational status: disabled History of recent travel: No Current gender identity: Female Physical Exam Const: COMMON NORMALS: no acute distress, patient oriented x3 and no limitations Eye: COMMON NORMALS: Equal, round and reactive pupils present and EOMs intact bilaterally PUPIL: Yes Equal, round and reactive pupils present Resp: COMMON NORMALS: normal respiratory effort, No retractions, No use of accessory muscles and clear to auscultation bilaterally AUSCULTATION: clear to auscultation bilaterally Cardio: COMMON NORMALS: regular rate and regular rhythm RATE: regular rate RHYTHM: regular rhythm GI: COMMON NORMALS: Soft to palpation PALPATION: Yes Soft to palpation, Yes Tenderness to palpation present (GI) (Diffuse), No Guarding due to palpation present (GI) and No Rigid due to palpation Extremity: COMMON NORMALS: normal to inspection and full ROM Neuro: COMMON NORMALS: patient oriented x3, moves all extremities and no focal motor deficits Psych: COMMON NORMALS: mental status grossly normal, cooperative and normal affect Course Vital Signs: Vital signs: Vital Signs Temperature 97.6 F 06/19/21 14:55 Pulse Rate 69 06/19/21 14:55 Respiratory Rate 18 06/19/21 14:55 Blood Pressure 163/93 06/19/21 14:55 Pulse Oximetry 100 06/19/21 14:55 MDM - Anxiety Medical Decision Making Patient exam and labs are consistent with her known colitis from her ER visit a couple days ago. I will give her some loperamide to help with the diarrhea along with some nausea. Patient asked what else she could take for any anxiousness and I recommended Benadryl because it would also help with her nausea and help her sleep. Patient stable and discharged home. If she needs further medication and evaluation I advised her to follow-up with her primary care provider. Patient stable and discharged home Lab Data : 06/19/21 14:40 06/19/21 14:40 Radiology Impressions KUB X-Ray 06/19/21 14:15 IMPRESSION: Bowel dilatation, disproportionately involving the colon, in a pattern favoring ileus. Laboratory Results WBC 11.2 10^3/uL (4.0-10.0) H 06/19/21 14:40 RBC 5.10 10^6/uL (4.1-5.3) 06/19/21 14:40 Hgb 15.0 g/dL (11.5-15.3) 06/19/21 14:40 Hct 45.1 % (37.0-47.0) 06/19/21 14:40 MCV 88.4 fl (81-99) 06/19/21 14:40 MCH 29.4 pg (28.0-34.0) 06/19/21 14:40 MCHC 33.3 g/dL (30.0-36.0) 06/19/21 14:40 RDW 14.6 % (12.1-15.1) 06/19/21 14:40 Plt Count 297 10^3/cmm (130-400) 06/19/21 14:40 MPV 10.3 fL (7.4-10.4) 06/19/21 14:40 Neut % (Auto) 76.6 % 06/19/21 14:40 Lymph % (Auto) 15.1 % 06/19/21 14:40 [place] % (Auto) 7.4 % 06/19/21 14:40 Eos % (Auto) 0.1 % 06/19/21 14:40 Baso % (Auto) 0.4 % 06/19/21 14:40 Neut # (Auto) 8.54 10^3/uL (1.8-7.7) H 06/19/21 14:40 Lymph # (Auto) 1.7 10^3/uL (0.8-4.8) 06/19/21 14:40 [place] # (Auto) 0.8 10^3/uL (0.2-0.9) 06/19/21 14:40 Eos # (Auto) 0.0 10^3/uL (0.0-0.8) 06/19/21 14:40 Baso # (Auto) 0.0 10^3/uL (0.0-0.1) 06/19/21 14:40 Nucleated RBC % (auto) 0 % 06/19/21 14:40 Nucleated RBCs # 0.0 /100WBC 06/19/21 14:40 Sodium 135 mmol/L (136-145) L 06/19/21 14:40 Potassium 3.4 mmol/L (3.5-5.1) L 06/19/21 14:40 Chloride 95 mmol/L (98-107) L 06/19/21 14:40 Carbon Dioxide 27 mmol/L (22-29) 06/19/21 14:40 Anion Gap 16.4 (5-19) 06/19/21 14:40 BUN 27 mg/dL (6-20) H 06/19/21 14:40 Creatinine 0.7 mg/dL (0.5-0.9) 06/19/21 14:40 GFR Calculation 85.9 mL/min (90-130) L 06/19/21 14:40 Glucose 118 mg/dL (65-115) H 06/19/21 14:40 Calculated Osmolality 286 mOsm/kg (285-295) 06/19/21 14:40 Calcium 9.2 mg/dL (8.5-10.5) 06/19/21 14:40 Total Bilirubin 0.4 mg/dL (0.15-1.2) 06/19/21 14:40 AST 19 U/L (0-32) 06/19/21 14:40 ALT 18 U/L (0-33) 06/19/21 14:40 Alkaline Phosphatase 96 IU/L (35-105) 06/19/21 14:40 C-Reactive Protein 3.0 mg/L (0.0-4.9) 06/19/21 14:40 Total Protein 7.4 g/dL (6.6-8.7) 06/19/21 14:40 Albumin 4.5 g/dL (3.5-5.2) 06/19/21 14:40 Globulin 2.9 g/dL (1.3-4.6) 06/19/21 14:40 Lipase 9 U/L (13-60) L 06/19/21 14:40 Urine Color Yellow (Yellow) 06/19/21 14:59 Urine Appearance Clear (CLEAR) 06/19/21 14:59 Urine pH 5 (5-7) 06/19/21 14:59 Ur Specific [place] 1.030 (1.005-1.030) 06/19/21 14:59 Urine Protein 1+ (Negative) H 06/19/21 14:59 Urine Glucose (UA) 1+ (Normal) H 06/19/21 14:59 Urine Ketones 2+ (Negative) H 06/19/21 14:59 Urine Blood 2+ (Negative) H 06/19/21 14:59 Urine Nitrate Negative (Negative) 06/19/21 14:59 Urine Bilirubin 1+ (Negative) H 06/19/21 14:59 Urine Urobilinogen 1 mg/dL (Negative) H 06/19/21 14:59 Ur Leukocyte Esterase Trace (Negative) H 06/19/21 14:59 Urine RBC None /hpf (0-2) 06/19/21 14:59 Urine WBC 0-4 /hpf (0-5) H 06/19/21 14:59 Ur Squamous Epith Cells 0-4 /hpf (0-5) H 06/19/21 14:59 Amorphous Sediment Not Reportable 06/19/21 14:59 Urine Bacteria 1+ /hpf (NONE) H 06/19/21 14:59 Urine Mucus 1+ /hpf 06/19/21 14:59 Imaging Data KUB: Radiologist's impression: XR/XR KUB portable [id number] IMPRESSION: Bowel dilatation, disproportionately involving the colon, in a pattern favoring ileus. Discharge Plan Discharge Patient Disposition: Home Clinical Impression: Colitis, Diarrhea Condition: Stable Prescriptions: New loperamide 2 mg capsule 2 mg PO Q6H PRN (Reason: loose stool) Qty: 14 0RF Rx Instructions: administer after each loose stool until symptoms controlled; do not exceed 8 mg per 24 hrs Zofran 4 mg tablet 4 mg PO Q8H PRN (Reason: nausea and vomiting) 4 Days Qty: 20 0RF No Action Jardiance 25 mg tablet 25 mg PO DAILY 0RF (DME) Walker See Rx Instructions .Route .MEDSUPPLY Qty: 1 0RF Rx Instructions: As directed Nitrostat 0.4 mg tablet, sublingual 0.4 mg SUBLINGUAL Q5M PRN (Reason: Chest Pain) Qty: 30 6RF fluticasone propionate 50 mcg/actuation spray,suspension 1 spray intranasal DAILY 0RF Rx Instructions: administer into each nostril (DME) Custom Molded Orthotics See Rx Instructions .Route .MEDSUPPLY Qty: 1 0RF Rx Instructions: As directed lactulose 10 gram/15 mL (15 mL) solution 15 ml PO BID 7 Days Qty: 210 0RF Rx Instructions: Take for 7 days prior to colonoscopy. fluticasone propion-salmeterol [Advair Diskus] 250-50 mcg/dose blister with device 1 inh INHALATION BID 0RF ergocalciferol (vitamin D2) [Vitamin D2] 1,250 mcg (50,000 unit) capsule 1,250 mcg PO Q7D 0RF montelukast 10 mg tablet 10 mg PO DAILY 0RF Rx Instructions: UNABLE TO CONFIRM ALL PT'S MEDICATIONS. SHE WAS THROWING UP AND UNABLE TO ANSWER QUESTIONS. USING HISTORY AND PHARMACY LIST. metoprolol succinate 25 mg tablet extended release 24 hr 25 mg PO DAILY 0RF Rx Instructions: UNABLE TO CONFIRM ALL PT'S MEDICATIONS. SHE WAS THROWING UP AND UNABLE TO ANSWER QUESTIONS. USING HISTORY AND PHARMACY LIST. pravastatin 80 mg tablet 80 mg PO DAILY 0RF Rx Instructions: UNABLE TO CONFIRM ALL PT'S MEDICATIONS. SHE WAS THROWING UP AND UNABLE TO ANSWER QUESTIONS. USING HISTORY AND PHARMACY LIST. albuterol sulfate [ProAir HFA] 90 mcg/actuation HFA aerosol inhaler 2 puff INHALATION Q6H PRN (Reason: Shortness Of Breath) 0RF Toujeo SoloStar U-300 Insulin 300 unit/mL (1.5 mL) insulin pen 80 unit SUBCUT DAILY 0RF pioglitazone PO 0RF nabumetone 500 mg tablet 1,000 mg PO BID PRN0RF (DME) Night Splint See Rx Instructions .Route .MEDSUPPLY Qty: 1 0RF Rx Instructions: As directed metronidazole 500 mg tablet 500 mg PO BID 0RF metoclopramide HCl 10 mg tablet,disintegrating 10 mg PO Q6H 0RF lisinopril-hydrochlorothiazide 20-12.5 mg tablet See Rx Instructions .ROUTE .COMPLEX Qty: 90 3RF Dose Instruction: TAKE 1 TABLET BY MOUTH DAILY Rx Instructions: TAKE 1 TABLET BY MOUTH DAILY levothyroxine 300 mcg tablet 350 mcg PO DAILY Qty: 90 1RF Rx Instructions: PT STATES THAT SHE TAKES 2 TABS DAILY Dexilant 30 mg capsule,biphase delayed releas 30 mg PO BID Qty: 60 0RF Discharge Orders: Discharge ED (Routine); Ordered 06/19/21 Ordered By: Jose J Boogie Referrals: Beatriz Tobias MEDICAL CODING SPECIALIST [Primary Care Provider] - Discharge Diet: Advance as tolerated Discharge Activity: Resume usual activity Patient Instructions: Diarrhea - Adult, Colitis (ED), Opioid Safety Activity Restrictions/Additional Instructions: Follow-up with your primary care provider Monday or Monday of next week for recheck of your symptoms Coding Level of Care Code ED Service Parts Driver for Chg Fwd Exam Comprehensive
[2021-06-19] MEDS: ondansetron 2 mg/ML SDV 2 mL 4 MG IVP (14:43)
[2021-06-19] MEDS: sodium chloride 0.9% 1,000 ML 999 ML IV (14:43)
[2021-06-19 14:54] LABS: Basophils % 0.4 %; Eosinophils % 0.1 %; Hematocrit 45.1 % (37.0-47.0); Lymphocytes # 1.7 10^3/uL (0.8-4.8); Lymphocytes % 15.1 %; Mean Corpuscular HGB Conc 33.3 g/dL (30.0-36.0); Mean Corpuscular Hemoglobin 29.4 pg (28.0-34.0); Mean Corpuscular Volume 88.4 fl (81-99); Mean Platelet Volume 10.3 fL (7.4-10.4); Monocytes # 0.8 10^3/uL (0.2-0.9); Monocytes % 7.4 %; Neutrophils # 8.54 10^3/uL (1.8-7.7); Neutrophils % 76.6 %; Nucleated Red Blood Cells % 0 %; Platelet Count 297 10^3/cmm (130-400); Red Cell Distribution Width 14.6 % (12.1-15.1); White Blood Count 11.2 10^3/uL (4.0-10.0)
[2021-06-19 14:55] VITALS: BP 163/93; PULSE 69; RESP 18; TEMP 36.4; O2SAT 100
[2021-06-19 15:20] LABS: Alanine Aminotransferase 18 U/L (0-33); Albumin Level 4.5 g/dL (3.5-5.2); Alkaline Phosphatase 96 IU/L (35-105); Anion Gap 16.4 (5-19); Aspartate Amino Transferase 19 U/L (0-32); Blood Urea Nitrogen 27 mg/dL (6-20); Calcium 9.2 mg/dL (8.5-10.5); Carbon Dioxide 27 mmol/L (22-29); Chloride 95 mmol/L (98-107); Globulin 2.9 g/dL (1.3-4.6); Glomerular Filtration Rate 85.9 mL/min (90-130); Glucose 118 mg/dL (65-115); Lipase 9 U/L (13-60); Osmolality Calculated 286 mOsm/kg (285-295); Potassium 3.4 mmol/L (3.5-5.1); Sodium 135 mmol/L (136-145); Total Bilirubin 0.4 mg/dL (0.15-1.2); Total Protein 7.4 g/dL (6.6-8.7)
[2021-06-19 15:35] LABS: Add Urine Microscopic? YES; Bilirubin Urine 1+ (Negative); Blood Urine 2+ (Negative); Glucose Urine UA 1+ (Normal); Ketones Urine 2+ (Negative); Leukocyte Esterase Urine Trace (Negative); Nitrate Urine Negative (Negative); Protein Urine 1+ (Negative); Urine Appearance Clear (CLEAR); Urine Color Yellow (Yellow); Urobilinogen Urine 1 mg/dL (Negative); pH Urine 5 (5-7)
[2021-06-19 15:37] LABS: Squamous Epithelial Cell Urine 0-4 /hpf (0-5); WBC Urine 0-4 /hpf (0-5)
[2021-06-19 15:38] LABS: Add Urine Culture? No; Bacteria Urine 1+ /hpf; Mucus Urine 1+ /hpf
== END 2021-06-19 16:45 | disposition home or self-care (01) ==
PROVIDERS: Emergency Provider Student in an Organized Health Care Education/Training Program; PCP Nurse Practitioner Family
DX: K52.9 Noninfective gastroenteritis and colitis, unspecified (principal); Z79.4 Long term (current) use of insulin; I25.10 Atherosclerotic heart disease of native coronary artery without angina pectoris; J44.9 Chronic obstructive pulmonary disease, unspecified; E11.9 Type 2 diabetes mellitus without complications; I10 Essential (primary) hypertension; F17.210 Nicotine dependence, cigarettes, uncomplicated
CPT/HCPCS: 74018; 80053; 81001; 83690; 85025; 86140; 96361; 96374; 99284; J2405; J7030

== ENCOUNTER 2021-09-02 16:08 | Outpatient (CLI) | payer MEDICARE, MEDICAID, SELFPAY | END 2021-09-02 16:09 | disposition home or self-care (01) | LOC: SPT 16:09 | PROVIDERS: PCP Nurse Practitioner Family; Visit Provider Podiatrist Foot & Ankle Surgery | DX: Z46.89 Encounter for fitting and adjustment of other specified devices (principal); M72.2 Plantar fascial fibromatosis; E11.42 Type 2 diabetes mellitus with diabetic polyneuropathy; M76.822 Posterior tibial tendinitis, left leg; M19.071 Primary osteoarthritis, right ankle and foot; M20.41 Other hammer toe(s) (acquired), right foot; M20.42 Other hammer toe(s) (acquired), left foot | CPT/HCPCS: 97760; L3030 ==

== ENCOUNTER → 2022-01-17 08:10 | Outpatient (BNVA) | payer MEDICARE, MEDICAID, SELFPAY | PROVIDERS: PCP Nurse Practitioner Family; Visit Provider Podiatrist Foot & Ankle Surgery | DX: E11.8 Type 2 diabetes mellitus with unspecified complications (principal); L60.3 Nail dystrophy; Z79.4 Long term (current) use of insulin; M67.471 Ganglion, right ankle and foot | CPT/HCPCS: 73630; 99213; 99214 ==

== ENCOUNTER 2022-02-10 07:53 | Outpatient (CLI) | payer MEDICARE, MEDICAID, SELFPAY ==
--- NOTE | 2022-02-10 08:45 | MR_ITS ---
WS: [id number] MRI RIGHT FOOT without CONTRAST. COMPARISON: None Multiplanar, multisequence imaging is performed without contrast. There is a lobulated cystic mass along the dorsal surface of the foot at the level of the proximal fo urth and fifth metatarsals. Cystic mass measures 10 x 5 mm and extends along the lateral foot mediall y between the proximal fourth and fifth metatarsals. This may be associated with the flexor digitorum brevis ligament between the fourth and fifth metatarsals. Small subchondral cyst along the plantar surface of the proximal fourth metatarsal. No bone erosion. Moderate size calcaneal spur measures 11 mm. MR/MR foot RT wo con* [id number] IMPRESSION: 1. Lobulated cystic mass along the lateral foot adjacent to the proximal fifth metatarsal. Mass extends medially between the proximal fourth and fifth metata rsals and may be associated with the flexor digitorum brevis ligament. 2. Moderate size calcaneal spur. No fractures.
== END 2022-02-10 07:54 | disposition home or self-care (01) ==
LOC: RAD 07:55
PROVIDERS: PCP Nurse Practitioner Family; Visit Provider Podiatrist Foot & Ankle Surgery
DX: M67.471 Ganglion, right ankle and foot (principal); M77.31 Calcaneal spur, right foot
CPT/HCPCS: 73718

== ENCOUNTER 2022-05-26 14:06 | Emergency (ER) | payer MEDICARE, MEDICAID, SELFPAY ==
[2022-05-26 14:10] VITALS: PULSE 84; RESP 20; O2SAT 98; BMI 35.1
--- NOTE | 2022-05-26 14:19 | ECG_ITS ---
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 Measurements Intervals [place] Rate: 65 P: 85 HI: 134 QRS: 55 QRSD: 77 T: 57 QT: 392 QTc: 410 Interpretive Statements SINUS RHYTHM POSSIBLE RIGHT ATRIAL ENLARGEMENT [0.25mV P-WAVE] SEPTAL MYOCARDIAL INFARCTION , OF INDETERMINATE AGE [40+ ms Q WAVE IN V1/V2] Compared to ECG 03/27/2021 16:01:10 Myocardial infarct finding now present Electronically Signed On 05-26-2022 20:06:09 PILATES INSTRUCTOR by Phan Fry M.D. [id number]
--- NOTE | 2022-05-26 14:22 | ED_ITS ---
HPI - Abdominal Pain General: Chief Complaint: Abdominal Pain Stated Complaint: ABDOMINAL PAIN Time Seen by Provider: 05/26/22 14:17 Source: patient Mode of arrival: EMS History of Present Illness: 61-year-old female who presents to the emergency room with nausea and vomiting. She says this has been going on for about the last 5 years intermittently. She was given fentanyl and Zofran in route by EMS. She has received some IV fluids as well she had loose stools for the last couple days denies any medic easy melena hematemesis coffee-ground emesis. 2 days ago she was seen at an different emergency room in this area CT was done and was unremarkable. Patient has a longstanding history of diabetes. She had been previously referred to general surgery but did not not have that appointment so did not have the evaluation. She states she has been told in the past she has colitis and has been treated as with moderate relief of symptoms. MD elicited complaint: abdominal pain Associated Symptoms: Reports diarrhea and nausea; Denies bloating, chills, coffee ground emesis, constipation, dysuria, fever(s), hematochezia, hematemesis, melena and vomiting Review of Systems Const: Denies: fever(s), chills, body aches, change in appetite, fatigue or malaise ENMT: Denies: throat pain, ear or mastoid pain, nasal discharge or nasal congestion Card: Denies: chest pain, edema, dyspnea on exertion or orthopnea Resp: Denies: dyspnea, productive cough or non-productive cough GI: Reports: abdominal pain, nausea and diarrhea; Denies: vomiting, hematemesis, coffee ground emesis, constipation, bloating, hematochezia or melena : Denies: flank pain, difficulty voiding, dysuria, urinary frequency or urinary urgency Skin/Breast: Denies: rash or pruritus PFS ED PFSH: Medical History Akathisia CAD (coronary artery disease) CKD (chronic kidney disease) COPD (chronic obstructive pulmonary disease) Degenerative disc disease, cervical Diabetes type 2, controlled Fatty liver disease, nonalcoholic History of colitis HTN (hypertension) Hypothyroid Intervertebral disc disorder with radiculopathy of lumbosacral region GILMAR (obstructive sleep apnea) Osteoarthritis thoracic spine Schizoaffective disorder Smoking addiction Thoracic degenerative disc disease Surgical History History of delivery (~1988) History of cholecystectomy History of foot surgery (~2010) cyst removal History of knee surgery (~2010) Family History Father Cancer Family/Other Cancer Grandmother Cancer Other Schizoaffective disorder Social History Smoking and tobacco status: current every day smoker cigarettes Packs smoked per day: 1 Years cigarettes smoked: 48 Alcohol intake: never Household members: children Marital status: Single Current occupational status: disabled Current gender identity: Female Female Reproductive History: Spontaneous abortions: No Physical Exam 2 Const: GENERAL APPEARANCE: cooperative and comfortable ORIENTATION/CONSCIOUSNESS: Yes awake, Yes oriented to person, Yes oriented to place and Yes oriented to time HENMT: COMMON NORMALS: normocephalic, atraumatic and hearing grossly normal bilaterally HEAD & SCALP: normocephalic and atraumatic Resp: COMMON NORMALS: normal respiratory effort, No retractions, No use of accessory muscles and clear to auscultation bilaterally AUSCULTATION: clear to auscultation bilaterally Cardio: COMMON NORMALS: regular rate, regular rhythm and No murmurs present (Cardio) RATE: regular rate RHYTHM: regular rhythm GI: COMMON NORMALS: Soft to palpation and No hepatosplenomegaly present AUSCULTATION: Yes normoactive bowel sounds PALPATION: Yes Soft to palpation, No Tenderness to palpation present (GI), No Guarding due to palpation present (GI) and Yes No hepatosplenomegaly present Extremity: COMMON NORMALS: normal to inspection, capillary refill normal, no clubbing, cyanosis or edema, no calf tenderness and no pedal edema Neuro: SENSORIUM/ORIENTATION: Yes oriented to person, Yes oriented to place and Yes oriented to time Skin: COMMON NORMALS: no rashes or lesions noted GENERAL SKIN EXAM: no rashes or lesions noted Course Vital Signs: Vital signs: Vital Signs Temperature 98.3 F 05/26/22 14:31 Pulse Rate 106 H 05/26/22 17:18 Respiratory Rate 18 05/26/22 17:18 Blood Pressure 159/73 05/26/22 17:18 Pulse Oximetry 92 05/26/22 17:18 Oxygen Delivery Me thod 05/26/22 14:10 MDM - Abdominal Pain Medical Decision Making I suspect patient has diabetic gastroparesis. She is diabetic the small longstanding problem. She has tried various medications for. Recommend that she have a gastric emptying study and follow-up with her primary care doctor. Also recommend stopping the glimepiride is not particularly helpful at this point since she is already on insulin and may be contributing to her symptoms. Finally ondansetron as needed. Offered Reglan patient states she has tried in t he past and has not helped much. Lab Data 05/26/22 14:45 05/26/22 14:45 Labs/Radiology: Laboratory Results WBC 10.1 10^3/uL (4.0-10.0) H 05/26/22 14:45 RBC 4.94 10^6/uL (4.1-5.3) 05/26/22 14:45 Hgb 14.2 g/dL (11.5-15.3) 05/26/22 14:45 Hct 43.1 % (37.0-47.0) 05/26/22 14:45 MCV 87.2 fl (81-99) 05/26/22 14:45 MCH 28.7 pg (28.0-34.0) 05/26/22 14:45 MCHC 32.9 g/dL (30.0-36.0) 05/26/22 14:45 RDW 14.8 % (12.1-15.1) 05/26/22 14:45 Plt Count 322 10^3/cmm (130-400) 05/26/22 14:45 MPV 10.2 fL (7.4-10.4) 05/26/22 14:45 Neut % (Auto) 86.3 % 05/26/22 14:45 Lymph % (Auto) 9.3 % 05/26/22 14:45 [place] % (Auto) 3.4 % 05/26/22 14:45 Eos % (Auto) 0.0 % 05/26/22 14:45 Baso % (Auto) 0.4 % 05/26/22 14:45 Neut # (Auto) 8.73 10^3/uL (1.8-7.7) H 05/26/22 14:45 Lymph # (Auto) 0.9 10^3/uL (0.8-4.8) 05/26/22 14:45 [place] # (Auto) 0.3 10^3/uL (0.2-0.9) 05/26/22 14:45 Eos # (Auto) 0.0 10^3/uL (0.0-0.8) 05/26/22 14:45 Baso # (Auto) 0.0 10^3/uL (0.0-0.1) 05/26/22 14:45 Nucleated RBC % (auto) 0 % 05/26/22 14:45 Nucleated RBCs # 0.0 /100WBC 05/26/22 14:45 Sodium 135 mmol/L (136-145) L 05/26/22 14:45 Potassium 4.1 mmol/L (3.5-5.1) 05/26/22 14:45 Chloride 97 mmol/L (98-107) L 05/26/22 14:45 Carbon Dioxide 23 mmol/L (22-29) 05/26/22 14:45 Anion Gap 19.1 (5-19) H 05/26/22 14:45 BUN 21 mg/dL (6-20) H 05/26/22 14:45 Creatinine 0.7 mg/dL (0.5-0.9) 05/26/22 14:45 GFR Calculation 85.6 mL/min (90-130) L 05/26/22 14:45 Glucose 172 mg/dL (65-115) H 05/26/22 14:45 Calculated Osmolality 287 mOsm/kg (285-295) 05/26/22 14:45 Calcium 9.6 mg/dL (8.5-10.5) 05/26/22 14:45 Total Bilirubin 0.3 mg/dL (0.15-1.2) 05/26/22 14:45 AST 18 U/L (0-32) 05/26/22 14:45 ALT 28 U/L (0-33) 05/26/22 14:45 Alkaline Phosphatase 99 U/L (35-105) 05/26/22 14:45 Total Protein 7.2 g/dL (6.6-8.7) 05/26/22 14:45 Albumin 4.3 g/dL (3.5-5.2) 05/26/22 14:45 Globulin 2.9 g/dL (1.3-4.6) 05/26/22 14:45 Lipase 14 U/L (13-60) 05/26/22 14:45 Urine Color Dark yellow (Yellow) 05/26/22 16:17 Urine Appearance Clear (CLEAR) 05/26/22 16:17 Urine pH 6 (5-7) 05/26/22 16:17 Ur Specific [place] 1.015 (1.005-1.030) 05/26/22 16:17 Urine Protein Neg (Negative) 05/26/22 16:17 Urine Glucose (UA) 4+ (Normal) H 05/26/22 16:17 Urine Ketones 2+ (Negative) H 05/26/22 16:17 Urine Blood Trace (Negative) H 05/26/22 16:17 Urine Nitrate Negative (Negative) 05/26/22 16:17 Urine Bilirubin Neg (Negative) 05/26/22 16:17 Urine Urobilinogen 1 mg/dL (Negative) H 05/26/22 16:17 Ur Leukocyte Esterase Negative (Negative) 05/26/22 16:17 Urine RBC 0-4 /hpf (0-2) H 05/26/22 16:17 Urine WBC Rare /hpf (0-5) 05/26/22 16:17 Ur Squamous Epith Cells Rare /hpf (0-5) 05/26/22 16:17 Calcium Oxalate Crystal 0-4 /hpf H 05/26/22 16:17 Amorphous Sediment 1+ /hpf 05/26/22 16:17 Urine Bacteria Trace /hpf (NONE) 05/26/22 16:17 Hyaline Casts 0-4 /lpf H 05/26/22 16:17 Urine Mucus 2+ /hpf 05/26/22 16:17 Discharge Plan Discharge Patient Disposition: Home Clinical Impression: Diabetic gastroparesis Condition: Stable Prescriptions: New ondansetron HCl 4 mg tablet 4 mg PO Q6H PRN (Reason: nausea and vomiting) Qty: 20 0RF Discontinued glimepiride 4 mg Tablet 4 mg PO BID No Action Jardiance 25 mg tablet 25 mg PO DAILY Nitrostat 0.4 mg tablet, sublingual 0.4 mg SUBLINGUAL Q5M PRN (Reason: Chest Pain) Qty: 30 6RF fluticasone propionate 50 mcg/actuation spray,suspension 1 spray intranasal DAILY Rx Instructions: administer into each nostril dexlansoprazole [Dexilant] 30 mg capsule,biphase delayed releas 30 mg PO DAILY levothyroxine 300 mcg tablet 300 mcg PO DAILY Rybelsus 7 mg tablet 7 mg PO DAILY hydrocodone-acetaminophen 7.5-325 mg tablet 1 tab PO Q8H PRN (Reason: Pain) fluticasone propion-salmeterol [Advair Diskus] 250-50 mcg/dose blister with device 1 inh INHALATION BID montelukast 10 mg tablet 10 mg PO DAILY pravastatin 80 mg tablet 80 mg PO DAILY albuterol sulfate [ProAir HFA] 90 mcg/actuation HFA aerosol inhaler 2 puff INHALATION Q6H PRN (Reason: Shortness Of Breath) Toujeo SoloStar U-300 Insulin 300 unit/mL (1.5 mL) insulin pen 80 unit SUBCUT DAILY ergocalciferol (vitamin D2) [Vitamin D2] 1,250 mcg (50,000 unit) capsule 50,000 unit PO Q7D Rx Instructions: On loperamide 2 mg capsule 2 mg PO Q6H PRN (Reason: loose stool) Qty: 14 0RF Rx Instructions: administer after each loose stool until symptoms controlled; do not exceed 8 mg per 24 hrs dicyclomine 20 mg Tablet 20 mg PO BID varenicline 1 mg tablet 1 mg PO DAILY Actos 45 mg Tablet 45 mg PO DAILY Discharge Orders: Discharge ED (Routine); Ordered 05/26/22 Ordered By: Juan De Paz Referrals: Beatriz Tobias FNP [Primary Care Provider] - Discharge Diet: Diabetic Discharge Activity: Increase activity as tolerated Patient Instructions: Opioid Safety, Pain Management Activity Restrictions/Additional Instructions: You are seen today for abdominal pain bloating nausea and vomiting. Based on your presentation suspect that you have diabetic gastroparesis. This may be worsened by the use of marijuana products. Recommend use of Reglan as needed cease use of all marijuana products. assurance manager will make arrangements for you to follow-up get gastric emptying study. Coding Level of Care Code ED Debt Management Counselor for Sydney Avila
[2022-05-26 14:31] VITALS: BP 172/100; PULSE 66; TEMP 36.8; O2SAT 97
[2022-05-26 15:05] LABS: Basophils % 0.4 %; Hematocrit 43.1 % (37.0-47.0); Hemoglobin 14.2 g/dL (11.5-15.3); Lymphocytes # 0.9 10^3/uL (0.8-4.8); Lymphocytes % 9.3 %; Mean Corpuscular HGB Conc 32.9 g/dL (30.0-36.0); Mean Corpuscular Hemoglobin 28.7 pg (28.0-34.0); Mean Corpuscular Volume 87.2 fl (81-99); Mean Platelet Volume 10.2 fL (7.4-10.4); Monocytes # 0.3 10^3/uL (0.2-0.9); Monocytes % 3.4 %; Neutrophils # 8.73 10^3/uL (1.8-7.7); Neutrophils % 86.3 %; Nucleated Red Blood Cells % 0 %; Platelet Count 322 10^3/cmm (130-400); Red Blood Count 4.94 10^6/uL (4.1-5.3); Red Cell Distribution Width 14.8 % (12.1-15.1); White Blood Count 10.1 10^3/uL (4.0-10.0)
[2022-05-26 15:15] VITALS: BP 141/87; PULSE 86; RESP 19; O2SAT 91
[2022-05-26] MEDS: haloperidol inj 5 mg/mL INJ 1 mL 2.5 MG IVP (15:27)
[2022-05-26] MEDS: LORazepam 2 mg/mL INJ 1 mL IVP (15:27)
[2022-05-26 15:31] LABS: Alanine Aminotransferase 28 U/L (0-33); Albumin Level 4.3 g/dL (3.5-5.2); Alkaline Phosphatase 99 U/L (35-105); Anion Gap 19.1 (5-19); Aspartate Amino Transferase 18 U/L (0-32); Blood Urea Nitrogen 21 mg/dL (6-20); Calcium 9.6 mg/dL (8.5-10.5); Carbon Dioxide 23 mmol/L (22-29); Chloride 97 mmol/L (98-107); Globulin 2.9 g/dL (1.3-4.6); Glomerular Filtration Rate 85.6 mL/min (90-130); Glucose 172 mg/dL (65-115); Lipase 14 U/L (13-60); Osmolality Calculated 287 mOsm/kg (285-295); Potassium 4.1 mmol/L (3.5-5.1); Sodium 135 mmol/L (136-145); Total Bilirubin 0.3 mg/dL (0.15-1.2); Total Protein 7.2 g/dL (6.6-8.7)
[2022-05-26 15:47] VITALS: BP 141/72; PULSE 86; RESP 17; O2SAT 91
[2022-05-26 16:46] LABS: Add Urine Microscopic? YES; Amorphous Sediment Urine 1+ /hpf; Bacteria Urine TRACE /hpf; Bilirubin Urine Neg (Negative); Blood Urine Trace (Negative); Calcium Oxalate Crystals Urine 0-4 /hpf; Glucose Urine UA 4+ (Normal); Hyaline Casts Urine 0-4 /lpf; Ketones Urine 2+ (Negative); Leukocyte Esterase Urine Negative (Negative); Mucus Urine 2+ /hpf; Nitrate Urine Negative (Negative); Protein Urine Neg (Negative); RBC Urine 0-4 /hpf (0-2); Specific Gravity, Urine 1.015 (1.005-1.030); Squamous Epithelial Cell Urine RARE /hpf (0-5); Urine Appearance Clear (CLEAR); Urine Color Dark Yellow (Yellow); Urobilinogen Urine 1 mg/dL (Negative); WBC Urine RARE /hpf (0-5); pH Urine 6 (5-7)
[2022-05-26 16:47] LABS: Add Urine Culture? No
[2022-05-26 17:18] VITALS: BP 159/73; PULSE 106; RESP 18; O2SAT 92
--- NOTE | 2022-05-31 09:16 | DCPLANNER ---
Addendum entered by Nettie Wilson 06/28/22 08:43: Patient had an outpatient gastric emptying study - patient did attend appointment. Addendum entered by Nettie Wilson 06/22/22 11:08: Patient has an appointment scheduled for the emptying study on Monday, June 27, 2022 at 10:00 Original Note: client experience manager had message to schedule an outpatient emptying study. client experience manager faxed signed order to centralized scheduling, who will call patient with appointment information.
== END 2022-05-26 17:30 | disposition home or self-care (01) ==
PROVIDERS: Emergency Provider Family Medicine; PCP Nurse Practitioner Family
DX: E11.43 Type 2 diabetes mellitus with diabetic autonomic (poly)neuropathy (principal); K31.84 Gastroparesis; Z79.84 Long term (current) use of oral hypoglycemic drugs
CPT/HCPCS: 36415; 80053; 81001; 83690; 85025; 93005; 96374; 96375; 99284; J1630; J2060

== ENCOUNTER 2022-06-27 09:16 | Outpatient (CLI) | payer MEDICARE, MEDICAID, SELFPAY ==
--- NOTE | 2022-06-27 09:37 | NM_ITS ---
WS: [id number] NUCLEAR MEDICINE GASTRIC STUDY CLINICAL INFORMATION: DIABETIC GASTROPARESIS TECHNIQUE: Following oral ingestion of cooked egg mixed with 0.97 mCi technetium 99m sulfur colloid, anterior images of the stomach were obtained over the course of 90 minutes. Activity curve was perfor med over the course of 90 minutes with linear regression analysis. COMPARISON: None. FINDINGS: Oral ingestion of cooked egg mixture. 18% emptying at 66 minutes. 39% emptying at 120 minutes. T1 half emptying 151 minutes VT/[place] [id number] IMPRESSION: Delayed gastric emptying with T1 half 151 minutes *Normal median T1 half 90 minutes for solid egg meal (45-110 minutes). Delayed gastric retention is defined as 90% retained at 1 hour, 60% at 2 hour s, 30% at 3 hours, and 10% at 4 hours (normal percent gastric retention is 37-9 0% at 1 hour, 30-60% at 2 hours, and 0-10% at 4 hours).
== END 2022-06-27 09:17 | disposition home or self-care (01) ==
LOC: RAD 09:17
PROVIDERS: PCP Nurse Practitioner Family; Visit Provider Family Medicine
DX: E11.43 Type 2 diabetes mellitus with diabetic autonomic (poly)neuropathy (principal)
CPT/HCPCS: 78264; A9541